=== PATIENT | male | born 1940 | race Caucasian/White ===

== ENCOUNTER 2018-12-03 22:23 | Inpatient (IN) | payer BC, MEDICARE ==
[~2018-12-03] VITALS: Ht 167.6 cm; Wt 77.1 kg
--- NOTE | 2018-12-03 22:35 | NUR ---
ADMITTED DIRECTLY FROM [facility] FOR 5150 HOLD FOR GD, CAME TO THE UNIT AT AROUND 2235, BROUGHT IN BY PARAMEDICS VIA GURNEY. PATIENT CAME DUE TO HIS DELUSIONS AND AGGRESSIVE BEHAVIOR AT HOME. PER HIS AND HOSPITAL STAFF, HE ATTACKED HIS STATING, " I'M SATAN AND I HAVE TO FINISH WHAT I STARTED." PLACED PATIENT IN BED COMFORTABLY, AWAKE ALERT, ORIENTED X1, CONFUSED, DISORIENTED, CALM, QUIET, ABLE FOLLOW INSTRUCTIONS, SLOW SPEECH, , LOW ENERGY, UNKEMPT, DISHEVELED. FLAT AFFECT. RESPIRATION EVEN, BREATHING PATTERN NON-LABORED, NO APPARENT DISTRESS NOTED. DENIES ANY PAIN. SKIN CLEAR, NOTED SCABS, DISCOLORATION ON BLE AND BUE. MRSA SCREEN DONE, SEEN BY DR. KANIKA Hussein. BELONGINGS WERE INVENTORIED AND CHECKED FOR CONTRABAND. PATIENT IS AMBULATORY WITH ASSISTANCE. BED LOCKED AND PLACED ON LOWEST POSITION TO MAINTAIN SAFETY. WILL CONTINUE TO MONITOR Q 15 MINS. FOR SAFETY AND BEHAVIOR.
[2018-12-03] MEDS ORDERED: LOPE2CAP40 PO (22:53)
[2018-12-03] MEDS ORDERED: FLUO20TA28 PO (22:53)
[2018-12-03] MEDS ORDERED: ACETAMINOPHEN 325 MG TABLET PO PRN (23:00)
[2018-12-03] MEDS ORDERED: TEMAZEPAM 7.5 MG CAPSULE PO PRN (23:00)
[2018-12-03] MEDS ORDERED: MAGNESIUM HYDROXIDE 30 ML UDC PO PRN (23:00)
[2018-12-03] MEDS ORDERED: MAG HYDROX/AL HYDROX/SIMETH 30 ML UDC PO PRN (23:00)
--- NOTE | 2018-12-04 04:20 | NUR ---
PATIENT HAD 1 LOOSE BOWEL MOVEMENT, SMALL AMOUNT. HAD SHOWER. UNABLE TO COLLECT URINE, MIXED WITH STOOLS.
[2018-12-04] MEDS ORDERED: clonazePAM 0.5 MG TABLET PO PRN (04:30)
--- NOTE | 2018-12-04 05:55 | NUR ---
SEEN BY DR. SAM. MITCHELL, AWARE OF MED-RECON .
--- NOTE | 2018-12-04 05:56 | NUR ---
CALLED AND ASKED ABOUT HER 'S STATUS, NEWLY ADMITTED TO THE UNIT
[2018-12-04 07:52] LABS: EOSINOPHILS % (AUTO) 0.1 % (0.0-6.0); HEMATOCRIT 43 % (39-51); HEMOGLOBIN 14.7 g/dL (13.5-17.5); LYMPHOCYTES # (AUTO) 0.5 /CMM (0.8-4.8); LYMPHOCYTES % (AUTO) 4.8 % (20.0-44.0); MEAN CORPUSCULAR HGB CONC 34 g/dl (31.0-36.0); MEAN CORPUSCULAR VOLUME 93 fL (80-96); MONOCYTES # (AUTO) 0.9 /CMM (0.1-1.30); MONOCYTES % (AUTO) 7.9 % (2.0-12.0); NEUTROPHILS # (AUTO) 9.5 /CMM (1.8-8.9); NEUTROPHILS % (AUTO) 87.2 % (43.0-81.0); PLATELET COUNT (AUTO) 258 /CMM (150-450); RED BLOOD CELL COUNT(AUTO) 4.63 MIL/uL (4.5-6.0); WHITE BLOOD COUNT (AUTO) 10.9 K/uL (4.3-11.0)
[2018-12-04 08:00] VITALS: BP 153/94
[2018-12-04 08:06] LABS: ALANINE AMINOTRANSFERASE 21 U/L (12-78); ALBUMIN 3.3 g/dL (3.4-5.0); ALKALINE PHOSPHATASE 73 U/L (46-116); ASPARTATE AMINOTRANSFERASE 27 U/L (15-37); CALCIUM, SERUM 9.3 mg/dL (8.5-10.1); CARBON DIOXIDE 28 mmol/L (21-32); CHLORIDE 99 mmol/L (98-107); CREATININE 1.2 mg/dL (0.6-1.3); GLUCOSE 124 mg/dL (74-106); POTASSIUM 4.2 mmol/L (3.5-5.1); SODIUM SERUM 136 mmol/L (136-145); UREA NITROGEN, BLOOD 38 mg/dL (7-18)
[2018-12-04 08:19] LABS: CHOLESTEROL 159 mg/dL (<200); HDL CHOLESTEROL 74 mg/dL (40-60); LDL 87 mg/dL (0-99); TRIGLYCERIDES 64 mg/dL (30-150)
[2018-12-04] MEDS ORDERED: OLANZAPINE 5 MG/TAB.RAPDIS PO SCH (11:25)
--- NOTE | 2018-12-04 14:05 | NUR ---
Initial Discharge Plan: Pt currently resides at his home located at [address] [place] [address] with his , Gina Rose ([phone]). Per pt's , she would like the pt to be admitted into a senior living facility. SANDY presented [facility] as an option due to the family's location. SANDY will work with the pt, the /DPOA, and the MD regarding appropriate discharge planning. SANDY will form a safe and proper discharge.
--- NOTE | 2018-12-04 15:16 | NUR ---
SANDY called the pt's , Kaitlyn Rose ([phone]), and was unable to speak to her because she did not milk pickup truck driver the phone call and the mailbox was full so the SW was not able to leave a message. SANDY realized that the voicemail introduction was for the pt and may not be a number that the has access to. Addendum: 12/05/18 at 0855 by SEAN DELGADO Gina Rose
--- NOTE | 2018-12-04 15:18 | NUR ---
SANDY called [facility] ([phone]) and inquired about whether or not they have a different phone number for the pt's . SANDY was told to fax a request for information to [phone].
--- NOTE | 2018-12-04 15:26 | NUR ---
SW attempted to conduct the psychosocial assessment with the pt but he is currently mute.
--- NOTE | 2018-12-04 15:45 | NUR ---
SANDY received a call from the pt's son, Jose Roes ([phone]), and asked him for the accurate phone number to contact the pt's . The initial treatment and discharge plan was also discussed. The pt's son stated that their family does not feel comfortable with the pt living with his because he had been aggressive. SANDY informed him that she would do her best to get him accepted into a longterm facility located in [place] which is a more local placement for the pt and his family.
[2018-12-04 16:00] VITALS: BP 139/82
--- NOTE | 2018-12-04 16:15 | NUR ---
SW called the pt's , Gina Rose ([phone]), and informed her that the pt is refusing to speak to anyone and that the SW was unable to conduct the psychosocial assessment with him due to that reason. SW conducted the assessment with the pt's and then went on to inform her about the initial treatment and discharge plan. SW informed her that there is a facility in [place] that would be appropriate for the pt and is a local placement to the family. Pt's stated that she is very interested in it and would like the SW to refer the pt there.
[2018-12-04 19:59] VITALS: BP 145/98
--- NOTE | 2018-12-05 03:23 | NUR ---
[facility] RN NOTES PT NOTED TO HAVE CRACKLES. PT DESATING AT 72% BP 112/56 P 157 T 98 RR 25. NOTED TO HAVE ABDOMINAL DISTENTION. RAPID RESPONSE CALLED. PAGED DR. BOUDREAUX. AWAITING FOR ORDERS. WILL CONTINUE TO MONITOR.
--- NOTE | 2018-12-05 03:45 | NUR ---
[facility] RN NOTES DR. BOUDREAUX CALLED. NOTIFIED HIM RE PT'S CONDITION. WITH NEW ORDERS TO TRANSFER TO ICU. ORDERS NOTED AND CARRIED OUT. PT WILL BE TRANSFERRED TO ROOM 252
[2018-12-05 03:51] LABS: ABG BASE EXCESS 1.1 mmol/L; ABG OXYGEN SATURATION 82.5 % (92.0-98.5); ABG PH 7.378 (7.350-7.450); COHb 0.6 % (0.5-1.5); MetHb 0.6 % (0.0-1.5); O2Hb 81.5 % (94.0-97.0); SITE, ABG Right Radial; VENT MODE, BG NRB 100%
[2018-12-05 04:00] VITALS: BP 112/56
--- NOTE | 2018-12-05 04:00 | NUR ---
[facility] RN NOTES REPORT GIVEN TO LAMBERTO STEEPING PRESS TENDER FOR CONTINUITY OF CARE.
--- NOTE | 2018-12-05 04:05 | NUR ---
[facility] RN NOTES CALLED JD. LEFT A MESSAGE RE PT'S TRANSFER TO ICU
[2018-12-05] MEDS ORDERED: FLUOXETINE HCL 20 MG CAPSULE PO SCH (09:00)
--- NOTE | 2018-12-05 09:03 | NUR ---
Pt was discharged from the Geropsychiatric unit and was admitted to the ICU due to an abdominal distension, vomitting and an irregular heart rate. SW will inform the family about this discharge.
--- NOTE | 2018-12-05 09:13 | NUR ---
SW called the pt's , Gina Rose ([phone]), but the dial tone was busy and therefore the SW was unable to inform her that the pt was discharged to ICU due to a medical condition.
--- NOTE | 2018-12-05 09:24 | NUR ---
SANDY called the pt's son, Jose Rose ([phone]), and informed that the pt was discharged to ICU and that if he had any questions the nurses on the unit would be able to assist him better.
== END 2018-12-05 03:46 | disposition short-term general hospital (02) | DRG 885 ==
LOC: GPS 22:23
PROVIDERS: ADMIT Psychiatry & Neurology Psychiatry; ATTEND Psychiatry & Neurology Psychiatry
DX: F33.3 Major depressive disorder, recurrent, severe with psychotic symptoms (principal); R45.851 Suicidal ideations; A04.72 Enterocolitis due to Clostridium difficile, not specified as recurrent; F03.90 Unspecified dementia, unspecified severity, without behavioral disturbance, psychotic disturbance, mood disturbance, and anxiety; Z85.038 Personal history of other malignant neoplasm of large intestine
CPT/HCPCS: 36415; 36600; 71045-TC; 80053-TC; 80061-TC; 85025-TC; 87081-TC

== ENCOUNTER 2018-12-05 04:01 | Inpatient (IN) | payer MEDICARE, BC ==
[2018-12-03 04:00] VITALS: BP 85/53
[2018-12-05] VITALS (111 sets, daily range): BP systolic 56–136; BP diastolic 28–91
[~2018-12-05] VITALS: Ht 175.3 cm; Wt 68.5 kg
--- NOTE | 2018-12-05 03:44 | NUR ---
RECEIVED PT IN RESPIRATORY DISTRESS IN BED. PT IS A/O X 1-2. PT IS ON NON REBREATHER MASK @ 15LPM. PT HAS RIGHT NARE NGT THAT IS CLEAN DRY INTACT AND PATENT WITH BLACK STOMACH CONTENT IN TUBING. TUBEING PLACED TO LOW INTERMITTENT SUCTION TO DECREASE CHANCES OF VOMITING. PT HAS VISIBLE VOMIT ON CLOTHES AND BED. RT AT BEDSIDE AND DEEP SUCTION PERFORMED WITH BLACK STOMACH CONTENT SUCTIONED. PT HAS BILATERAL HAND 20G IV THAT ARE CLEAN DRY INTACT AND PATENT WITH NS @ 100ML/HR. RT PERFORMING ABG. BED IN LOW LOCK POSITION WITH RIALS UP X 2. CALL LIGHT WITHIN REACH AND ALL SAFETY MEASURES ENSURED AND CARRIED OUT. WILL CONTINUE TO MONITOR PT.
--- NOTE | 2018-12-05 03:48 | NUR ---
NOTIFIED DR. KANIKA DUMONT OF ABG RESULTS AND RECEIVED ORDER TO INTUBATE PT.
[~2018-12-05 04:01] MED LIST: FLUO20TA28 PO; LOPE2CAP40 PO
[2018-12-05] MEDS ORDERED: ROCURONIUM BROMIDE 50 MG/5 ML ONE (04:20)
[2018-12-05] MEDS ORDERED: ETOMIDATE 2 MG/ML VIAL ONE (04:20)
--- NOTE | 2018-12-05 04:20 | NUR ---
ER MD DR. BADILLO AT BEDSIDE FOR INTUBATION. 0423- SUCCESSFUL INTUBATION WITH POSITIVE LUNG SOUNDS IN ALL VARGAS AND POSITIVE COLOR CHANGE WITH CO2 DETECTOR. ETT 7.5 AT THE LIP
--- NOTE | 2018-12-05 04:40 | NUR ---
RECEIVED CALL FROM DR. SEBASTIAN TO ADVANCE ETT 7 CM. WILL NOTIFY RT TO ADJUST ETT.
--- NOTE | 2018-12-05 04:45 | NUR ---
RT ADJUSTED ETT TO 27CM. AWAITING XRAY RESULTS.
[2018-12-05] MEDS: PROPOFOL 100 ML IV PRN ×2 (04:55→17:14)
[2018-12-05] MEDS: IV NS 0.9% 1,000 ML IV PRN ×2 (04:56→18:11)
[2018-12-05] MEDS ORDERED: PROPOFOL 100 ML IV PRN (05:00)
--- NOTE | 2018-12-05 05:13 | NUR ---
AT 3:34 PT CALLED FOR RAPID RESPONSE, PT PLACED ON NON REBREATHER, PT STILL DESATTING . ABG DONE . NASO TRACHEAL SUCTIONED DONE . SUCTIONED COFFEE GROUND EMESIS. PT TRANSPORTED TO ICU@ 3:44. PT WAS ORALLY INTUBATED WITH 7.5 ETT@ 23CM AT THE LIP, POSITIVE COLOR CHANGED ON CAP, BILATERAL BREATH SOUNDS AND SYMMETRICAL CHEST RISE. . PLACED PT ON MECH VENT WITH SETTINGS OF AC 16, 500 PEEP 5, FIO2 100%. VENT PLUGGED INTO RED OUTLET, VENT ALARM SET AND AUDIBLE. AMBU BAG @ BEDSIDE . WILL MONITOR CLOSELY.
--- NOTE | 2018-12-05 05:15 | NUR ---
@ 4:45 ETT ADJUST TO 27 CM PER MD'S ORDER. PENDING XRAY REPORT.
[2018-12-05 05:21] LABS: EOSINOPHILS % (AUTO) 0.1 % (0.0-6.0); HEMATOCRIT 53 % (39-51); HEMOGLOBIN 17.5 g/dL (13.5-17.5); LYMPHOCYTES # (AUTO) 0.3 /CMM (0.8-4.8); LYMPHOCYTES % (AUTO) 7.5 % (20.0-44.0); MEAN CORPUSCULAR HGB CONC 33 g/dl (31.0-36.0); MEAN CORPUSCULAR VOLUME 95 fL (80-96); MONOCYTES # (AUTO) 0.3 /CMM (0.1-1.30); NEUTROPHILS # (AUTO) 3.8 /CMM (1.8-8.9); NEUTROPHILS % (AUTO) 86.4 % (43.0-81.0); PLATELET COUNT (AUTO) 251 /CMM (150-450); RED BLOOD CELL COUNT(AUTO) 5.56 MIL/uL (4.5-6.0); WHITE BLOOD COUNT (AUTO) 4.4 K/uL (4.3-11.0)
[2018-12-05 05:38] LABS: ALANINE AMINOTRANSFERASE 87 U/L (12-78); ALBUMIN 3.2 g/dL (3.4-5.0); ALKALINE PHOSPHATASE 85 U/L (46-116); ASPARTATE AMINOTRANSFERASE 79 U/L (15-37); BILIRUBIN,TOTAL 1.3 mg/dL (0.2-1.0); CALCIUM, SERUM 8.8 mg/dL (8.5-10.1); CARBON DIOXIDE 28 mmol/L (21-32); CHLORIDE 99 mmol/L (98-107); CREATININE 2.4 mg/dL (0.6-1.3); GLUCOSE 159 mg/dL (74-106); MAGNESIUM 2.1 mg/dL (1.8-2.4); PHOSPHORUS 5.9 mg/dL (2.5-4.9); POTASSIUM 3.4 mmol/L (3.5-5.1); SODIUM SERUM 141 mmol/L (136-145); UREA NITROGEN, BLOOD 46 mg/dL (7-18)
[2018-12-05 05:57] LABS: ABG OXYGEN SATURATION 98.5 % (92.0-98.5); ABG PCO2 70.5 mmHg (35.0-45.0); ABG PH 7.246 (7.350-7.450); ABG PO2 173.3 mmHg (75.0-100.0); AaDO2 469.2 mmHg; COHb 0.1 % (0.5-1.5); O2Hb 97.4 % (94.0-97.0); PEEP,BG 5 cm H2O; SITE, ABG Left Radial; VT, ABG 500 mL
--- NOTE | 2018-12-05 06:30 | NUR ---
VENT SETTING CHANGED TO RATE OF 20 PER MD'S ORDER. PO ORANTES NOTIFIED
--- NOTE | 2018-12-05 07:15 | NUR ---
VASCULAR SONOGRAPHER: pt.is sedated with 30mcg/kg/m Diprivan, reactive by touch, can open eyes, restless, on wrists restraints, ST 140-150, SBP 79-86, O2sat. 95-97%, NGT to LIS, L.hand PIVL blood return+, R.hand PIVL needs to be retape, paged Mir, PATIENT ATTENDANT
[2018-12-05] MEDS ORDERED: IV NS 0.9% 1,000 ML IV ONE ×2 (07:37→09:10)
[2018-12-05] MEDS ORDERED: IV NS 0.9% 1,000 ML IV PRN (07:38)
[2018-12-05 07:48] LABS: ABG BASE EXCESS 2.7 mmol/L; ABG PCO2 44.7 mmHg (35.0-45.0); ABG PH 7.414 (7.350-7.450); ABG PO2 197.9 mmHg (75.0-100.0); AaDO2 470.4 mmHg; COHb 0.4 % (0.5-1.5); MetHb 0.8 % (0.0-1.5); O2Hb 97.8 % (94.0-97.0); PEEP,BG 5 cm H2O; SITE, ABG Right Radial; VT, ABG 500 mL
--- NOTE | 2018-12-05 07:51 | NUR ---
PT REMAINS IN NO ACUTE DISTRESS IN BED. PT DID NOT HAVE ANY SIGNIFICANT CHANGE IN CONDITION DURING SHIFT. PT TOLERATING VENT SETTING WELL. ALL NEEDS MET, ALL ORDERS CARRIED OUT. WILL ENDORSE CARE TO AM RN FOR CONTINUITY OF CARE.
--- NOTE | 2018-12-05 07:58 | NUR ---
RT PT RECEIVED ORALLY INTUBATED WITH A 7.5 ETT SECURED AT 27CM AT THE LIP LINE, PT IS ON THE VENT WITH NOTED SETTINGS. PEEP DECREASED DUE TO HYPOTENSION. PT IS CURRENTLY SEDATED AT THIS TIME AND RESPONDS TO STIMULI WHEN SX'D. VENT ALARMS ARE SET AND AUDIBLE WITH BVM BY BEDSIDE. SYSTEMS DEVELOPER CUFF PRESSURE NOTED. VENT IS PLUGGED INTO RED OUTLET. SX'D SMALL THIN REINOSO SECRETIONS. NO RESPIRATORY DISTRESS NOTED AT THIS TIME, WILL CONTINUE TO MONITOR. Addendum: 12/05/18 at 1446 by ARMEN BOO RT Amended: Links added.
--- NOTE | 2018-12-05 08:00 | NUR ---
ACCOUNT SERVICES SPECIALIST: updated by night nurse, ordered ABG, pH 7.41 now, SHARRI Hester called back, ordered: NS1L bolus, Willy gtt, R.IVPL blood return+, charge nurse updated/called concrete pipe plant supervisor for midline/picc placement
--- NOTE | 2018-12-05 08:05 | NUR ---
WOOD GRINDER: double IVF order is in comp., confirmed: continue NS 100ml/h
--- NOTE | 2018-12-05 08:10 | NUR ---
FEED MIXER HELPER: Diprivan gtt down to 10mcg/kg/m d/t low BP, 1L NS bolus running, pt.family called, notified re what happened last night/current status, POC, Mir is in room, updated with all above, ordered stool for c-diff, 200ml brown by NGT LIS
[2018-12-05] MEDS: PHENYLEPHRINE 80 MG in IV NS 0.9% 250 ML IV PRN ×3 (08:21→17:41)
[2018-12-05 08:42] LABS: THYROID STIMULATING HORMONE 0.54 uIU/mL (0.358-3.74)
--- NOTE | 2018-12-05 08:45 | NUR ---
INSIDE SALES PROFESSIONAL: is in room, updated with pt.current condition, sedation level, pressor, VS, suction amount, IVF, orders, ABG, I/O, ordered: second L NS bolus, rate 500ml/h. Willy-synephrine gtt on/titrate+
[2018-12-05] MEDS: HYDROCORTISONE SOD SUCCINATE 100 MG/2 ML VIAL IV SCH ×3 (09:16→17:01)
[2018-12-05] MEDS ORDERED: PIPERACILLIN /TAZOBACTAM 3.375 G in IV D5W 50 ML IV ONE (10:00)
--- NOTE | 2018-12-05 10:11 | NUR ---
DR. CAMARENA GAVE AN ORDER TO D/C HOLD.
[2018-12-05] MEDS ORDERED: POTASSIUM CL. PREMIX PERIPHER. 50 ML IV SCH (11:12)
--- NOTE | 2018-12-05 11:30 | NUR ---
MUTUEL MACHINE OPERATOR: pt.family is in room, detailed updated with pt.current status, VS, order, POC, agree for PICC placement, PO Hernadez placed in L.arm PICC/OK to use
[2018-12-05] MEDS ORDERED: PIPERACILLIN /TAZOBACTAM 2.25 G in IV D5W 50 ML IV SCH (12:00)
[2018-12-05] MEDS: FLUDROCORTISONE 0.1 MG TABLET PO SCH ×3 (12:11→23:29)
[2018-12-05] MEDS ORDERED: IV NS 0.9% 500 ML IV ONE ×2 (12:26→13:00)
--- NOTE | 2018-12-05 12:30 | NUR ---
NURSE MANAGER: max of Willy-synephrine gtt 300mcg/m dose now, SBP 85-90 now, HR 115-120, O2sat. 95-97%, FiO2 60%, notified, ordered 500ml NS bolus
[2018-12-05] MEDS ORDERED: NOREPINEPHRINE 16 MG in IV D5W 500 ML IV PRN (13:00)
--- NOTE | 2018-12-05 13:00 | NUR ---
DENTAL TECHNICIAN INSTRUCTOR: is in room again, updated/SBP still 80-90, ordered one more 500ml NS bolus and Levophed prn after, spoke with pt.family with details
[2018-12-05] MEDS: PIPERACILLIN /TAZOBACTAM 3.375 G in IV D5W 100 ML IV SCH (17:02)
--- NOTE | 2018-12-05 17:24 | NUR ---
Patient was transferred from [facility] to ICU due to changed of condition. He is currently on a 5250 HOLD for grave disability and danger to self.Prior coming to the hospital, he resides with his in [facility]. Gina Rose - [phone]/ Jose Rose -son [phone] are involved and supportive with plan of care. Current dc plan is to return to [facility] once medically cleared vs SNF [facility] Addendum: 12/05/18 at 1725 by CHRISTEN PLEITEZ RN Amended: Links added.
[2018-12-05 18:11] LABS: OCCULT BLOOD STOOL POSITIVE (NEGATIVE)
[2018-12-05] MEDS ORDERED: Z GUARD REMEDY 2 OZ OINT TP PRN (18:30)
--- NOTE | 2018-12-05 18:30 | NUR ---
BLOCK AND CASE MAKER: 4 mcg/m Levo gtt now, 280 mcg/m Willy gtt, continue titrate, SBP over 90, O2sat. over 95%, St 100-120, PM, skin care done
--- NOTE | 2018-12-05 20:00 | NUR ---
SCRIPT SUPERVISOR - NOTES - PT RECEIVED IN BED IN NO ACUTE DISTRESS IN BED. PT ON VENT TOLERATING SETTING WELL 02SAT 100%. VITAL SIGNS STABLE. PT IS SEDATED ON PROPOFOL @ 20 MCG, ON LEVOPHED AND NEOSYNEPHRINE, AND IVF 100 ML/HR. PT HAS R NARE NGT TO LIS. PT IS ON RESTRAINTS FOR SAFETY. PT IS IN ST/SR. TMAX 100.7. PT HAS F/C WITH CLEAR YELLOW URINE ADEQUATE AMOUNT. PT HAS MIROSLAVA PICC LINE AND RIGHT HAND 20G AND LEFT AND 20G. WILL CONTINUE TO MONITOR.
--- NOTE | 2018-12-05 20:10 | NUR ---
RT NOTE PATIENT RECEIVED ON AC 20, 500, 60%, NO PEEP. ET TUBE 7.5 @ 27 LIP LINE. AMBU BAG @ HOB. VENT PLUGGED INTO RED OUTLET. PATIENT IS ORALLY INTUBATED AND RESPONDS TO STIMULI WHEN SX'D. SMALL THIN REINOSO SECRETIONS NOTED. ALARMS ON AND AUDIBLE. NO DISTRESS NOTED, WILL MONITOR CLOSELY T/O SHIFT. Addendum: 12/05/18 at 2013 by ANALI RIDDLE RT Amended: Links added.
[2018-12-06] VITALS (118 sets, daily range): BP systolic 53–120; BP diastolic 47–77
[2018-12-06] MEDS: PIPERACILLIN /TAZOBACTAM 3.375 G in IV D5W 100 ML IV SCH ×3 (02:49→17:57)
[2018-12-06] MEDS: PROPOFOL 100 ML IV PRN ×3 (02:49→19:24)
[2018-12-06] MEDS: PHENYLEPHRINE 80 MG in IV NS 0.9% 250 ML IV PRN ×2 (03:10→21:23)
[2018-12-06] MEDS: IV NS 0.9% 1,000 ML IV PRN (04:29)
[2018-12-06 05:01] LABS: ALANINE AMINOTRANSFERASE 123 U/L (12-78); ALKALINE PHOSPHATASE 47 U/L (46-116); ASPARTATE AMINOTRANSFERASE 67 U/L (15-37); BILIRUBIN,TOTAL 0.8 mg/dL (0.2-1.0); CALCIUM, SERUM 7.8 mg/dL (8.5-10.1); CARBON DIOXIDE 28 mmol/L (21-32); CHLORIDE 107 mmol/L (98-107); CREATININE 1.8 mg/dL (0.6-1.3); GLUCOSE 129 mg/dL (74-106); POTASSIUM 3.9 mmol/L (3.5-5.1); SODIUM SERUM 144 mmol/L (136-145); TOTAL PROTEIN, SERUM 5.1 g/dL (6.4-8.2); UREA NITROGEN, BLOOD 50 mg/dL (7-18)
[2018-12-06 05:21] LABS: HEMATOCRIT 39 % (39-51); HEMOGLOBIN 12.9 g/dL (13.5-17.5); LYMPHOCYTES # (AUTO) 0.4 /CMM (0.8-4.8); LYMPHOCYTES % (AUTO) 3.4 % (20.0-44.0); MEAN CORPUSCULAR HGB CONC 34 g/dl (31.0-36.0); MEAN CORPUSCULAR VOLUME 95 fL (80-96); MONOCYTES # (AUTO) 0.5 /CMM (0.1-1.30); MONOCYTES % (AUTO) 4.8 % (2.0-12.0); NEUTROPHILS % (AUTO) 91.8 % (43.0-81.0); PLATELET COUNT (AUTO) 165 /CMM (150-450); RED BLOOD CELL COUNT(AUTO) 4.06 MIL/uL (4.5-6.0); WHITE BLOOD COUNT (AUTO) 10.8 K/uL (4.3-11.0)
[2018-12-06] MEDS: FLUDROCORTISONE 0.1 MG TABLET PO SCH (05:44)
--- NOTE | 2018-12-06 07:40 | NUR ---
LARD MAKER: pt.is sedated well with Diprivan 20 mcg/kg/m, reactive by touch, rest, no grimacing, on wrists restraints, SR, on 40 mcg/m Willy-Syn gtt now, SBP over 90, continue titrate, Levophed gtt is off, NGT LIS 200ml suction over night, stool OB +/will s/w , FiO2 60%, O2sat. 98-100%
--- NOTE | 2018-12-06 08:25 | NUR ---
MACHINE HOSE CUTTER: Mir, LICENSING COORDINATOR is in room, updated with pt.current condition, sedation level, jaycob gtt, VS, I/O, NGT LIS, NPO, IVF, labs, diarrhea, stool OB+, meds, ordered: flexiseal tube placement, see new orders
--- NOTE | 2018-12-06 08:40 | NUR ---
SHEEP OR CALF GRADER: SHARRI Hester confirmed: apply legs DVT pump
--- NOTE | 2018-12-06 09:20 | NUR ---
HOUSEKEEPER CLEANING COOKING: rectal tube is placed in/no leak, skin care done, continue titrate pressor, RT changed FiO2 to 40%
[2018-12-06] MEDS: PANTOPRAZOLE 40 MG VIAL IV SCH ×2 (09:33→17:15)
--- NOTE | 2018-12-06 10:00 | NUR ---
COMMUNITY RELATIONS REP: is in room, updated with pt.current condition, VS, T, sedation level, Willy gtt 10 mcg/m now, I/O, suction amount, vent.setting, stool OB+, diarrhea, plan: ABG and sedation vacation after
[2018-12-06 10:02] LABS: BAND % (MANUAL) 50 % (0.0-5.0); LYMPHOCYTES % (MANUAL) 5 % (16-48); MONOCYTES % (MANUAL) 12 % (0-11.0); MYELOCYTES % 1 % (0-0); NEUTROPHILS % (MANUAL) 32 (42-76)
[2018-12-06 10:32] LABS: ABG PCO2 38.2 mmHg (35.0-45.0); ABG PO2 69.5 mmHg (75.0-100.0); AaDO2 171.8 mmHg; COHb 0.1 % (0.5-1.5); MetHb 0.9 % (0.0-1.5); O2Hb 92.1 % (94.0-97.0); PEEP,BG 0 cm H2O; SITE, ABG Right Radial; VT, ABG 500 mL
--- NOTE | 2018-12-06 11:10 | NUR ---
DIRECTOR OF RECRUITING: pt.was without sedation around 20 mins, was rest, able to open eyes for seconds, RR 20-24, O2sat. over 97%, but HR is up to 140-160, Afib on monitor, palpation: 100-105, SBP over 90, pt is grimacing, resumed sedation, updated with ABG and all above
--- NOTE | 2018-12-06 11:50 | NUR ---
PANTS MAKER: family is in room, got detailed report re pt.current condition, VS, orders, POC. Aifb on monitor, 140-160, sedation Diprivan 25 mcg/kg/m now, Willy-synephrine gtt 100 mcg/m now, will get EKG, notified, ordered: bolus NS 500ml and titrate off Willy gtt to keep SBP over 95
[2018-12-06] MEDS ORDERED: IV NS 0.9% 500 ML IV ONE (12:30)
--- NOTE | 2018-12-06 12:40 | NUR ---
SKIVER OPERATOR: NS 500ml bolus given, went down with Willy gtt to 50 mcg/m, but back to 100 mcg/m d/t SBP 83-89, Afib converted to SR/ST, now 98-108, notified
--- NOTE | 2018-12-06 13:30 | NUR ---
STRIP CUTTING MACHINE OPERATOR: pt.is sedated well, ST 100-110, SBP over 90, continue titrate Willy gtt, pt.family updated with POC again
--- NOTE | 2018-12-06 15:40 | NUR ---
COMPRESSOR STATIONS SUPERINTENDENT: suctioned pt.well after coughing, grimacing, increased Diprivan sedation to 30 mcg/kg/m, got HR 140-160, afib, sent message for
--- NOTE | 2018-12-06 15:49 | NUR ---
WINDOW DRESSER: BP 88/59, increased Willy gtt at 40 mcg/m, Afib converted to SR-ST 98-110 spontaneously, charge nurse updated
--- NOTE | 2018-12-06 16:45 | NUR ---
CLINICAL BIOCHEMICAL GENETICIST: still on Willy gtt, continue titrate, 40 mcg/m now, sedated well, rhythm: Afib - SR/ST rapid in and out still, message was sent to by charge nurse and me, all PM/skin care done
--- NOTE | 2018-12-06 17:20 | NUR ---
PLANT MAINTENANCE TECHNICIAN: MirUTILITY CLERK is in unit and updated with pt.current status, still on Willy gtt, Afib -SR/ST rapid in and out rhythm, message for was sent, ordered: BMP, Mg stat
[2018-12-06 17:34] LABS: IRON, SERUM 8 ug/dl (50-175); TOTAL IRON BINDING CAPACITY 202 ug/dl (250-450)
[2018-12-06 17:47] LABS: FERRITIN 168 ng/mL (8-388)
[2018-12-06] MEDS: SUCRALFATE 1 G/10 ML UDC PO SCH ×2 (17:56→21:18)
--- NOTE | 2018-12-06 18:12 | NUR ---
RT END OF THE SHIFT REPORT; PT REC. 0700 AM SHIFT. FAMILY MEMBERS AT THE BEDSIDE. PT. 78 Y OLD MALE ORALLY INTUBATED ETT# 7.5@ 27 CM SECURED AT THE LIP. REMAIN STABLE. NOT SEDATED PT. TOLERATING VENT SETTINGS. SUX'D FOR SMALL AMT OF WHITE SECRETIONS. EQUAL CHEST RISE NOTED. CUFF CHHA. VENT ALARMS SET AND AUDIBLE. AMBU BAG AT BEDSIDE. VENT PLUGGED INTO RED OUTLET. WILL CONTINUE TO MONITOR. HME CHANGED. REPORT WILL PASS TO PM SHIFT. Addendum: 12/06/18 at 1814 by CARA BERRY RT Amended: Links added.
[2018-12-06 18:21] LABS: CALCIUM, SERUM 7.7 mg/dL (8.5-10.1); CARBON DIOXIDE 30 mmol/L (21-32); CHLORIDE 109 mmol/L (98-107); CREATININE 1.4 mg/dL (0.6-1.3); GLUCOSE 101 mg/dL (74-106); POTASSIUM 3.5 mmol/L (3.5-5.1); SODIUM SERUM 145 mmol/L (136-145); UREA NITROGEN, BLOOD 41 mg/dL (7-18)
--- NOTE | 2018-12-06 18:34 | NUR ---
COAL HANDLER: SR/ST 99-105 is now, Willy gtt 30 mcg/m, SBP over 95, continue titrate, Elyssa, DIPLOMATIC INTERPRETER/TRANSLATOR is in room/updated
--- NOTE | 2018-12-06 19:30 | NUR ---
DE ICER INSTALLER: RECEIVED ORALLY INTUBATED PT WT MECH VENT SETTINGS ORDERED. SEDATED ON DIPRIVAN DRIP AT 30MCG/KG/MIN. WITHDRAWS TO LOCALIZED PAIN. NO ACUTE DISTRESS, NO EVIDENCE OF DISCOMFORT. SR ON SENIOR EXECUTIVE COMPENSATION ANALYST. MIROSLAVA PICC LINE ALSO INFUSING PHENYLEPHRINE AT 30MCG/MIN WT NO S/S OF PICC LINE COMPLICATIONS. RT. NGT TO LIS WT GREENISH SECRETIONS FROM PREVIOUS SHIFT. RECTAL TUBE IN PLACE WT DARK BROWN LIQUID STOOLS. F/C PATENT AND INTACT DRAINING YELLOW URINE TO GRAVITY. BILAT. SOFT WRIST RESTRAINTS IN PLACE TO PREVENT SELF EXTUBATION. SKIN AND CIRCULATION WNL. HOB AT 35 DEGREES. SAFETY PRECAUTION NOTED. WILL CONTINUE TO MONITOR.
--- NOTE | 2018-12-06 21:55 | NUR ---
AIRPORT ENGINEER: DR. BOUDREAUX IN ICU UNIT AND MADE AWARE OF PT IN AND OUT OF A. FIB WT HR IN 130s-140s. MD SAID TO CONTINUE TO MONITOR AND WAIT FOR CARDIO. CONSULT WT DR. LOPEZ. NO ACUTE DISTRESS NOTED ON PT.
[2018-12-07] VITALS (62 sets, daily range): BP systolic 100–139; BP diastolic 60–84
[2018-12-07] MEDS: PIPERACILLIN /TAZOBACTAM 3.375 G in IV D5W 100 ML IV SCH ×3 (01:39→17:44)
--- NOTE | 2018-12-07 02:00 | NUR ---
PERSONNEL RECORDS CLERK: NEOSYNEPHRINE HELD AT THIS TIME DUE TO STABLE BP. WILL CONTINUE TO MONITOR.
[2018-12-07] MEDS: PROPOFOL 100 ML IV PRN ×2 (02:24→09:02)
--- NOTE | 2018-12-07 04:00 | NUR ---
FEED HANDLER: FIO2 INCREASED TO 50% WHILE GIVEN BED BATH AND DESATURATED AT 90% 02 SAT. WILL CONTINUE TO MONITOR.
[2018-12-07 05:19] LABS: BASOPHILS % (AUTO) 0.1 % (0.0-2.0); EOSINOPHILS % (AUTO) 0.5 % (0.0-6.0); HEMATOCRIT 37 % (39-51); HEMOGLOBIN 12.4 g/dL (13.5-17.5); LYMPHOCYTES # (AUTO) 0.4 /CMM (0.8-4.8); MEAN CORPUSCULAR HGB CONC 33 g/dl (31.0-36.0); MEAN CORPUSCULAR VOLUME 94 fL (80-96); MONOCYTES # (AUTO) 0.2 /CMM (0.1-1.30); MONOCYTES % (AUTO) 1.7 % (2.0-12.0); NEUTROPHILS # (AUTO) 11.8 /CMM (1.8-8.9); NEUTROPHILS % (AUTO) 94.7 % (43.0-81.0); PLATELET COUNT (AUTO) 138 /CMM (150-450); RED BLOOD CELL COUNT(AUTO) 3.96 MIL/uL (4.5-6.0); WHITE BLOOD COUNT (AUTO) 12.5 K/uL (4.3-11.0)
[2018-12-07 05:22] LABS: ALANINE AMINOTRANSFERASE 82 U/L (12-78); ALKALINE PHOSPHATASE 63 U/L (46-116); ASPARTATE AMINOTRANSFERASE 42 U/L (15-37); BILIRUBIN,TOTAL 0.6 mg/dL (0.2-1.0); CARBON DIOXIDE 30 mmol/L (21-32); CHLORIDE 109 mmol/L (98-107); CREATININE 1.2 mg/dL (0.6-1.3); GLUCOSE 111 mg/dL (74-106); MAGNESIUM 2.4 mg/dL (1.8-2.4); PHOSPHORUS 2.2 mg/dL (2.5-4.9); POTASSIUM 3.4 mmol/L (3.5-5.1); SODIUM SERUM 145 mmol/L (136-145); TOTAL PROTEIN, SERUM 5.6 g/dL (6.4-8.2); UREA NITROGEN, BLOOD 38 mg/dL (7-18)
--- NOTE | 2018-12-07 06:10 | NUR ---
ACID LOADER: STILL OFF NEOSYNEPHRINE, FI02 BACK TO 40% AND REMAIN SEDATED ON DIPRIVAN AT 30MCG/KG/MIN. NO MORE EPISODE OF UNCONTROLLED A. FIB AT THIS TIME (SINUS RHYTHM WT HR IN THE 80s). WILL ENDORSE TO DAY SHIFT FOR CONTINUITY OF CARE.
--- NOTE | 2018-12-07 08:00 | NUR ---
CERTIFIED HOME HEALTH AIDE RECEIVED PT SEDATED WITH DIPRIVAN. PT REMAINS ON VENTILATOR WITH SPO2 CONSISTENTLY HIGH 90'S. NO EPISODE OF TACHYCARDIA SEE LAST NIGHT.
[2018-12-07] MEDS: PANTOPRAZOLE 40 MG VIAL IV SCH ×2 (09:02→16:36)
[2018-12-07] MEDS: SUCRALFATE 1 G/10 ML UDC PO SCH ×4 (09:03→21:21)
--- NOTE | 2018-12-07 10:00 | NUR ---
RELIEF MATE HERE, UPDATED. PT REMAINS COMFORTABLE ON VENT WITH DIPRIVAN DRIP. BP STABLE. NO EPISODES OF DYSRHYTHMIAS SEEN. CONTINUES TO HAVE LIQUID STOOL COLLECTED BY FLEXISEAL. SUCTIONED, REPOSITIONED.
[2018-12-07] MEDS ORDERED: POTASSIUM CHLORIDE 20 MEQ POWDER PACKET GT ONE (11:00)
--- NOTE | 2018-12-07 12:00 | NUR ---
SOLID WASTE ENGINEER RECEIVED CALL FROM [facility] REGARDING LAB RESULTS. PT HAS POSITIVE C. DIFF. PLACED ON CONTACT ISOLATION.
[2018-12-07] MEDS: POTASSIUM CL. PREMIX PERIPHER. 50 ML IV SCH ×2 (13:38→13:40)
[2018-12-07] MEDS: METRONIDAZOLE 500MG/ NS 100ML 500 MG in PREMIX 1 EA IV SCH ×2 (13:40→21:19)
[2018-12-07] MEDS: VANCOMYCIN HCL 125 MG/2.5 ML ORAL.SUSP PO SCH ×3 (13:40→23:32)
[2018-12-07] MEDS: HEPARIN SODIUM, PORCINE 5000 UNITS/1 ML VIAL SQ SCH ×2 (13:44→21:00)
[2018-12-07] MEDS: IV D5/ 0.9% NACL 1,000 ML IV PRN (14:03)
--- NOTE | 2018-12-07 16:00 | NUR ---
TRANSMISSION DESIGN ENGINEER KARI LOPEZ SPOKE WITH PT'S REGARDING EGD. PT'S WILL SIGN CONSENT TOMORROW BEFORE PROCEDURE.
[2018-12-07] MEDS ORDERED: NEUTRA PHOS 1 POWD.PACKET GT ONE (16:30)
[2018-12-07] MEDS: SOD FERRIC GLUC 125 MG in IV NS 0.9% 100 ML IV SCH (16:59)
[2018-12-07] MEDS ORDERED: PROPOFOL 100 ML IV PRN (18:00)
--- NOTE | 2018-12-07 18:00 | NUR ---
SHIPBOARD INTELLIGENCE ANALYST PT BECOMING AGITATED, MOVING ALL EXTREMITIES WHILE OFF DIPRIVAN. ORDER RECEIVED TO RESTART DIPRIVAN.
--- NOTE | 2018-12-07 19:40 | NUR ---
RN NOTES RECEIVED PT SEDATED WITH DIPRIVAN RESPONSIVE TO TACTILE STIMULI ORALLY INTUBATED WITH ETT 7.5 AND 27 CM AT LIP CONNECTED TO VENT SETTING AC 20 TV 500 FIO2 40% NO PEEP. NSR ONT OBEY MONITOR HR 90'S . NO ACUTE RESPIRATORY DISTRESS SATURATION >92%. AFEBRILE. WITH NGT CLAMPED AT THIS TIME. IV SITE ON ALLEN PICC LINE RUNNING WITH D5 1/2 NS @ 80 ML/HR AND DIPRIVAN @ 10 MCG/KG/MIN TOLERATED WELL. PRESENT WITH FLEXISEAL DRY LIQUID STOOL AND CONTACT ISOLATION FOR C- DIFF. KEPT PT CLEAN AND COMFORTABLE ON BED. KEPT PT CLEAN AND DRY WILL CONTINUE TO MONITOR. Addendum: 12/07/18 at 2318 by PJ CHACKO RN IV SITE ON MIROSLAVA NOT ON ALLEN
--- NOTE | 2018-12-07 20:23 | NUR ---
RECEIVED PT INTUBATED 7.5 ETT SECURED AT 27CM AT THE LIP. NO RESP DISTRESS, TOLERATING VENT SETTINGS. SX'D FOR SML AMT OF THIN WHITE SECRETIONS. VENT ALARMS SET AND AUDIBLE. AMBU BAG AT BEDSIDE. VENT PLUGGED INTO RED OUTLET. WILL CONTINUE TO MONITOR. Addendum: 12/07/18 at 2024 by TARIQ BUTCHER RT Amended: Links added.
[2018-12-08] VITALS (64 sets, daily range): BP systolic 96–163; BP diastolic 56–117
[2018-12-08] MEDS: PIPERACILLIN /TAZOBACTAM 3.375 G in IV D5W 100 ML IV SCH ×3 (02:09→17:10)
[2018-12-08 04:35] LABS: EOSINOPHILS % (AUTO) 0.4 % (0.0-6.0); HEMATOCRIT 35 % (39-51); HEMOGLOBIN 11.6 g/dL (13.5-17.5); LYMPHOCYTES # (AUTO) 0.4 /CMM (0.8-4.8); LYMPHOCYTES % (AUTO) 2.6 % (20.0-44.0); MEAN CORPUSCULAR HGB CONC 33 g/dl (31.0-36.0); MEAN CORPUSCULAR VOLUME 94 fL (80-96); MONOCYTES # (AUTO) 0.6 /CMM (0.1-1.30); MONOCYTES % (AUTO) 3.5 % (2.0-12.0); NEUTROPHILS # (AUTO) 14.8 /CMM (1.8-8.9); NEUTROPHILS % (AUTO) 93.5 % (43.0-81.0); PLATELET COUNT (AUTO) 138 /CMM (150-450); WHITE BLOOD COUNT (AUTO) 15.9 K/uL (4.3-11.0)
[2018-12-08 04:42] LABS: CALCIUM, SERUM 8.1 mg/dL (8.5-10.1); CARBON DIOXIDE 29 mmol/L (21-32); CHLORIDE 108 mmol/L (98-107); CREATININE 1.1 mg/dL (0.6-1.3); GLUCOSE 130 mg/dL (74-106); POTASSIUM 2.9 mmol/L (3.5-5.1); SODIUM SERUM 137 mmol/L (136-145); UREA NITROGEN, BLOOD 34 mg/dL (7-18)
[2018-12-08] MEDS: METRONIDAZOLE 500MG/ NS 100ML 500 MG in PREMIX 1 EA IV SCH ×3 (04:57→17:09)
[2018-12-08] MEDS: IV D5/ 0.9% NACL 1,000 ML IV PRN ×2 (04:59→21:11)
[2018-12-08] MEDS: VANCOMYCIN HCL 125 MG/2.5 ML ORAL.SUSP PO SCH ×4 (05:01→23:08)
--- NOTE | 2018-12-08 07:32 | NUR ---
RN NOTES NO SIGNIFICANT CHANGE OF CONDITION THROUGHOUT THE SHIFT. PATIENT REMAINED ORALLY INTUBATED WITH THE SAME SETTING. NO ACUTE RESPIRATORY DISTRESS. CALM AND COOPERATIVE DIPRIVAN @ 5 MCG/KG.MIN ONGOING TITRATED ORDERED. IV SITE INTACT AND PATENT INF ONGOING. F/C INTACT AND PATENT FLEXISEAL DRAINED WITH BLACK COLOR LIQUID STOOL. ENDORSED CONTINUITY TO AM NURSE. AND TO ASKED TO SIGNED CONSENT FOR EGD.
--- NOTE | 2018-12-08 09:13 | NUR ---
WOUND CARE CONSULT: PT PRESENTS WITH LIQUID STOOLS, BLANCHABLE REDNESS TO SACRUM AND LEFT EAR LESION, PRESENT ON ADMISSION. 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 RECOMMENDATIONS MADE FOR SKIN PROTECTION AND CARE. DISCUSSED WITH NURSING STAFF. PT ON FIRST STEP CIRRUS LOW AIRLOSS MATTRESS. GONCALVES AND RECTAL TUBE NOTED. Z GUARD IN USE. WILL SEE PRN. CURRENT DRAKE SCORE IS 12. MD IN AGREEMENT WITH PLAN OF CARE. Addendum: 12/08/18 at 0915 by MELVA SHUKLA WNDNU Amended: Links added.
[2018-12-08] MEDS: POTASSIUM CL. PREMIX PERIPHER. 50 ML IV SCH ×4 (09:25→23:53)
[2018-12-08] MEDS: HEPARIN SODIUM, PORCINE 5000 UNITS/1 ML VIAL SQ SCH ×2 (09:28→22:59)
[2018-12-08] MEDS: PANTOPRAZOLE 40 MG VIAL IV SCH ×2 (09:29→17:13)
[2018-12-08] MEDS ORDERED: POTASSIUM CL. PREMIX PERIPHER. 50 ML IV SCH (10:14)
[2018-12-08 10:30] LABS: ABG BASE EXCESS 4.4 mmol/L; ABG OXYGEN SATURATION 95.4 % (92.0-98.5); ABG PCO2 39.1 mmHg (35.0-45.0); ABG PH 7.476 (7.350-7.450); ABG PO2 78.5 mmHg (75.0-100.0); AaDO2 161.7 mmHg; COHb 0.3 % (0.5-1.5); MetHb 0.5 % (0.0-1.5); O2Hb 94.6 % (94.0-97.0); PEEP,BG 5 cm H2O; SITE, ABG Right Radial
[2018-12-08] MEDS: SUCRALFATE 1 G/10 ML UDC PO SCH ×3 (12:00→21:22)
[2018-12-08] MEDS: SOD FERRIC GLUC 125 MG in IV NS 0.9% 100 ML IV SCH (17:09)
--- NOTE | 2018-12-08 18:03 | NUR ---
RT END OF THE SHIFT REPORT; PT REC. 0700 AM SHIFT. FAMILY MEMBERS AT THE BEDSIDE. PT. 78 Y OLD MALE ORALLY INTUBATED ETT# 7.5@ 27 CM SECURED AT THE LIP. REMAIN STABLE. NOT SEDATED PT. TOLERATING SIMV VENT SETTINGS. POST ABG PER DR. HILLS LEAVE PT. ON SIMV MODE AND IF EEG IN PROCESS PLACE ON AC MODE T/O DAY NO EEG AND PT. REMAIN ON SIMV MODE. SUX'D FOR MODERATE AMT OF WHITE SECRETIONS. EQUAL CHEST RISE NOTED. CUFF AIR ANTISUBMARINE OFFICER. VENT ALARMS SET AND AUDIBLE. AMBU BAG AT BEDSIDE. VENT PLUGGED INTO RED OUTLET. WILL CONTINUE TO MONITOR. HME CHANGED. REPORT WILL PASS TO PM SHIFT. Addendum: 12/08/18 at 1804 by CARA BERRY RT Amended: Links added.
--- NOTE | 2018-12-08 20:30 | NUR ---
RN NOTES RECEIVED PT ASLEEP ON BED. RESPONSIVE TO TACTILE STIMULI. ORALLY INTUBATED, CALM AND COOPERATIVE. NO SEDATION. VENT SETTING TOLERATED WELL. VENT SETTING ON SIMV MODE. NO ACUTE RESPIRATORY DISTRESS. TEMP 99.7 WITH NGT CLAMPED PATENCY CHECKED. IV SITE ON ALLEN PICC LINE WITH D5 NS @ 80 ML.HR OFF FROM SEDATION. BILATERAL WRIST RESTRAINT KEPT ON FOR SAFETY NOT TO PULL THE TUBE. F/C DRAINED WITH FERNANDA COLOR URINE, FLEXISEAL WITH DARK GREEN LIQUID STOOL KEPT OUT FROM THE FLOOR. KEPT PT CLEAN AND DRY, OFFLOADED EXT WITH PILLOWS. TURNED AND REPOSITION FOR COMFORTABLE.
--- NOTE | 2018-12-08 22:04 | NUR ---
RECEIVED PT INTUBATED ON SIMV MODE. PT TOLERATING VENT SETTINGS. SX'D FOR MOD AMT OF THIN WHITE SECRETIONS. VENT ALARMS SET AND AUDIBLE. AMBU BAG AT BEDSIDE. VENT PLUGGED INTO RED OUTLET. WILL CONTINUE TO MONITOR. Addendum: 12/08/18 at 2206 by TARIQ BUTCHER RT Amended: Links added.
--- NOTE | 2018-12-08 22:30 | NUR ---
RN NOTES NOTED THAT THE PATIENT 3 BAGS OF POTASSIUM WAS NOT GIVEN IN PREVIOUS SHIFT. CALLED AND INFORMED DR. MITCHELL PER MD TO GIVE THE REMAINING BAGS TO PATIENT AND CHECK THE BMP IN AM, NOTED AND CARRIED OUT ORDERS
[2018-12-08] MEDS ORDERED: POTASSIUM CL. PREMIX PERIPHER. 150 ML ONE (23:24)
[2018-12-09] VITALS (49 sets, daily range): BP systolic 118–149; BP diastolic 61–89
[2018-12-09] MEDS: POTASSIUM CL. PREMIX PERIPHER. 50 ML IV SCH ×2 (01:09→02:08)
[2018-12-09] MEDS: PIPERACILLIN /TAZOBACTAM 3.375 G in IV D5W 100 ML IV SCH ×3 (02:07→17:05)
[2018-12-09 04:41] LABS: EOSINOPHILS % (AUTO) 0.1 % (0.0-6.0); HEMATOCRIT 33 % (39-51); HEMOGLOBIN 10.7 g/dL (13.5-17.5); LYMPHOCYTES # (AUTO) 0.4 /CMM (0.8-4.8); LYMPHOCYTES % (AUTO) 3.6 % (20.0-44.0); MEAN CORPUSCULAR HGB CONC 33 g/dl (31.0-36.0); MEAN CORPUSCULAR VOLUME 96 fL (80-96); MONOCYTES # (AUTO) 0.7 /CMM (0.1-1.30); MONOCYTES % (AUTO) 5.6 % (2.0-12.0); NEUTROPHILS % (AUTO) 90.7 % (43.0-81.0); PLATELET COUNT (AUTO) 136 /CMM (150-450); WHITE BLOOD COUNT (AUTO) 12.1 K/uL (4.3-11.0)
[2018-12-09] MEDS: METRONIDAZOLE 500MG/ NS 100ML 500 MG in PREMIX 1 EA IV SCH ×3 (05:46→21:16)
[2018-12-09] MEDS: VANCOMYCIN HCL 125 MG/2.5 ML ORAL.SUSP PO SCH ×3 (05:47→17:05)
[2018-12-09 05:59] LABS: CALCIUM, SERUM 8.1 mg/dL (8.5-10.1); CARBON DIOXIDE 26 mmol/L (21-32); CHLORIDE 112 mmol/L (98-107); CREATININE 0.9 mg/dL (0.6-1.3); GLUCOSE 135 mg/dL (74-106); POTASSIUM 3.8 mmol/L (3.5-5.1); SODIUM SERUM 145 mmol/L (136-145); UREA NITROGEN, BLOOD 30 mg/dL (7-18)
--- NOTE | 2018-12-09 07:05 | NUR ---
LOOM OPERATOR APPRENTICE INITIAL NOTE RECEIVED PT FROM NIGHTSHIFT RN IN STABLE CONDITION. PT ABLE TO FOLLOW COMMANDS AND IS RESPONSIVE TO BOTH VERBAL AND TACTILE STIMULI. PT ORALLY INTUBATED ON SIMV MODE. VENT SETTING CHECKED FOR ACCURACY. PT TOLERATING SETTINGS WELL. VSS. EQUAL CHEST RISE AND FALL. GONCALVES CATHETER NOTED TO BE INTACT AND DRAINING CLEAR, YELLOW URINE. FLEXISEAL NOTED TO ALSO BE INTACT. NO OUTPUT NOTED AT THIS TIME. MULTIPLE IVS NOTED. ONE TO PT'S RIGHT HAND, ANOTHER TO HIS LEFT, AND THE THIRD A LEFT UPPER ARM PICC. LINES NOTED TO BE PATENT AND INTACT. NO REDNESS OR SIGNS OF INFILTRATION NOTED. PT CURRENTLY SR ON THE MONITOR WITH OCCASIONAL PACS. BILATERAL SOFT WRIST RESTRAINTS NOTED. NORMALS PULSES TO UPPER EXTREMITY AND GOOD CAP REFILL ASSESSED. BED IN LOW LOCKED POSITION., SIDE RAILS UP X3, CALL LIGHT WITHIN REACH, CDIFF ISOLATION PRECAUTIONS MAINTAINED. WILL CONTINUE TO MONITOR .
--- NOTE | 2018-12-09 07:15 | NUR ---
RN NOTES PATIENT REMAINED IN STABLE CONDITION. ORALLY INTUBATED TOLERATED VENT SETTING SIMV MODE , NO ACUTE RESPIRATORY DISTRESS. PATIENT IS MORE AWAKE AND ALERT. COMMUNICATED TO NURSE. NGT KEPT INTACT AND PATENT.. REMAINED IN ISOLATION DUE TO C- DIFF ISOLATION PRECAUTION MET. 3 IV SITE INTACT AND PATENT. CONTINUE WITH F.C DRAINED WITH FERNANDA COLOR URINE, FLEXISEAL KEPT ON STILL WITH LARGE LOOSE DARK GREENISH COLOR OUTPUT. PT WILL HAVE WEANING TRIAL TODAY, KEPT PT CLEAN AND DRY. ENDORSED CONTINUITY OF CARE TO AM NURSE AND TO FOLLOW UP FEEDING FOR THE PATIENT IS SO WORRIED THAT THE IS NOT BEEN FED FOR A COUPLE OF DAYS.
[2018-12-09] MEDS: SUCRALFATE 1 G/10 ML UDC PO SCH ×4 (08:37→21:16)
[2018-12-09] MEDS: PANTOPRAZOLE 40 MG VIAL IV SCH ×2 (08:37→16:47)
[2018-12-09] MEDS: HEPARIN SODIUM, PORCINE 5000 UNITS/1 ML VIAL SQ SCH ×2 (09:00→21:16)
--- NOTE | 2018-12-09 09:25 | NUR ---
PREBOARDER NOTES: EGD PROCEDURE DR. GOODMAN AT BEDSIDE. MD UPDATED ON PT'S CONDITION, POSITIVE OB STOOL AND RECENT LABS. PER MD "PT MAY NOT NEED AN EGD HIS H/H/ IS STABLE AND SHOWS NO OBVIOUS SIGNS OF BLEEDING, HOWEVER I WILL FOLLOW IT UP WITH THE ANESTHESIOLOGIST AND GET BACK TO YOU".
[2018-12-09] MEDS: IV D5/ 0.9% NACL 1,000 ML IV PRN (09:32)
[2018-12-09 10:13] LABS: ABG BASE EXCESS 3.1 mmol/L; ABG OXYGEN SATURATION 96.2 % (92.0-98.5); ABG PH 7.459 (7.350-7.450); ABG PO2 87.1 mmHg (75.0-100.0); AaDO2 153.3 mmHg; COHb 0.3 % (0.5-1.5); MetHb 0.6 % (0.0-1.5); O2Hb 95.3 % (94.0-97.0); PEEP,BG 5 cm H2O; SITE, ABG Left Radial
--- NOTE | 2018-12-09 10:21 | NUR ---
DR NORMAN AT BEDSIDE FOR EGD PROCEDURE
[2018-12-09] MEDS ORDERED: K PHOS NEUTRAL 250 MG TABLET PO ONE (14:00)
[2018-12-09] MEDS: SOD FERRIC GLUC 125 MG in IV NS 0.9% 100 ML IV SCH (15:26)
--- NOTE | 2018-12-09 18:29 | NUR ---
DAMASCENER CLOSING NOTES PT REMAINS IN STABLE CONDITION. HE TOLERATED CPAP WELL THROUGHOUT SHIFT. VSS THROUGHOUT. PT REPOSITIONED AND TURNED PER HOSPITAL PROTOCOL. INVASIVE LINES REMAIN PATENT AND INTACT. PT TOLERATING IV FLUIDS AND ZOSYN INFUSION WELL. FLEXI SEAL REMAINS PATENT AND DRAINING LIQUID GREEN STOOL. PRN CARE RENDERED. SAFETY MEASURES AND ISOLATION PRECAUTIONS IN PLACE. WILL ENDORSE TO NIGHTSHIFT RN FOR JUAN JOSÉ.
--- NOTE | 2018-12-09 19:55 | NUR ---
STULL HEWER. INITIAL ASSESSMENT. RECEIVED THE PT REST ON THE BED. ORALLY INTUBATED. CPAP MODE. PT TOLERATED WELL. SAT 98%. NO ACUTE DISTRESS NOTED. EVP SALES SHOWING S TACH. RATE IS 105. ETT #7.5,LIP 27,PS 12, CPAP 5. FIOP2 40%, PEEP 5. RT NARE NGT CLAMPED. IV LT UPPER ARM PICC LINE. IVF D5NS 80ML/H. HOB ELEVATED. FC PATENT. FLEXA SEAL INTACT. HAIDER SOFT WRIST RESTRAINT CHECKED AND RELEASED. NO INJURY OR REDNESS NOTED. WILL CONTINUE TO MONITOR VITALS
--- NOTE | 2018-12-09 20:03 | NUR ---
PT IS AWAKE AND FOLLOWS COMMAND, INTUBATED ON CPAP MODE. NO RESP DISTRESS. TOLERATING VENT SETTINGS. SX'D FOR MOD AMT OF THICK WHITE SECRETIONS. VENT ALARMS SET AND AUDIBLE. VENT PLUGGED INTO RED OUTLET. AMBU BAG AT BEDSIDE. WILL CONTINUE TO MONITOR. Addendum: 12/09/18 at 2004 by TARIQ BUTCHER RT Amended: Links added.
[2018-12-10] VITALS (36 sets, daily range): BP systolic 117–157; BP diastolic 60–98
[2018-12-10] MEDS: VANCOMYCIN HCL 125 MG/2.5 ML ORAL.SUSP PO SCH ×5 (02:14→23:00)
[2018-12-10] MEDS: PIPERACILLIN /TAZOBACTAM 3.375 G in IV D5W 100 ML IV SCH ×3 (02:15→17:22)
--- NOTE | 2018-12-10 04:36 | NUR ---
YARN WINDER. AM CARE, ORAL CARE, BED BATH GIVEN. LINEN CHANGED. REMAINING SAME VENT SETTING TOLERATED WELL. SAT 99%.NO ACUTE DISTRESS NOTED. CIO SHOWING S TACH;. FC PATENT. URINE DRAINING. HAIDER SOFT WRIST RESTRAINT CHECKED AND RELEASED. NO INJUR OR REDRT NARE NGT CLAMPED.WILL CONTINUR TO MON
[2018-12-10] MEDS: METRONIDAZOLE 500MG/ NS 100ML 500 MG in PREMIX 1 EA IV SCH ×3 (05:06→20:44)
[2018-12-10] MEDS: IV D5/ 0.9% NACL 1,000 ML IV PRN (05:10)
--- NOTE | 2018-12-10 07:10 | NUR ---
BEDSIDE REPORT RECEIVED FROM BARRY winston, FOLLOWS SIMPLE COMMANDS, REMAINS ON MECHANICAL VENTILATOR, CPAP MODE
[2018-12-10 07:52] LABS: ABG OXYGEN SATURATION 97.1 % (92.0-98.5); ABG PCO2 38.2 mmHg (35.0-45.0); ABG PH 7.477 (7.350-7.450); ABG PO2 94.5 mmHg (75.0-100.0); AaDO2 146.8 mmHg; COHb 0.2 % (0.5-1.5); MetHb 0.6 % (0.0-1.5); O2Hb 96.3 % (94.0-97.0); SITE, ABG Right Radial
[2018-12-10] MEDS ORDERED: BUMETANIDE INJ 8 MG in IV NS 0.9% 48 ML IV ONE (08:00)
[2018-12-10] MEDS ORDERED: DC PROPOFOL WHEN EXTUBATED XX PRN (08:00)
[2018-12-10] MEDS: SUCRALFATE 1 G/10 ML UDC PO SCH ×4 (08:18→20:47)
[2018-12-10] MEDS: PANTOPRAZOLE 40 MG VIAL IV SCH ×2 (08:18→16:30)
[2018-12-10 08:24] LABS: EOSINOPHILS % (AUTO) 0.1 % (0.0-6.0); HEMATOCRIT 37 % (39-51); LYMPHOCYTES # (AUTO) 0.6 /CMM (0.8-4.8); LYMPHOCYTES % (AUTO) 4.7 % (20.0-44.0); MEAN CORPUSCULAR HGB CONC 33 g/dl (31.0-36.0); MEAN CORPUSCULAR VOLUME 94 fL (80-96); MONOCYTES # (AUTO) 0.8 /CMM (0.1-1.30); MONOCYTES % (AUTO) 6.1 % (2.0-12.0); NEUTROPHILS # (AUTO) 12.2 /CMM (1.8-8.9); NEUTROPHILS % (AUTO) 89.1 % (43.0-81.0); PLATELET COUNT (AUTO) 180 /CMM (150-450); RED BLOOD CELL COUNT(AUTO) 3.93 MIL/uL (4.5-6.0); WHITE BLOOD COUNT (AUTO) 13.7 K/uL (4.3-11.0)
[2018-12-10] MEDS: Potassium Phosphate meq 11 MEQ in IV NS 0.9% 100 ML IV SCH ×2 (08:33→11:39)
[2018-12-10 08:50] LABS: ALANINE AMINOTRANSFERASE 31 U/L (12-78); ALBUMIN 1.5 g/dL (3.4-5.0); ALKALINE PHOSPHATASE 135 U/L (46-116); ASPARTATE AMINOTRANSFERASE 21 U/L (15-37); BILIRUBIN,TOTAL 0.7 mg/dL (0.2-1.0); CALCIUM, SERUM 8.1 mg/dL (8.5-10.1); CARBON DIOXIDE 26 mmol/L (21-32); CHLORIDE 116 mmol/L (98-107); CREATININE 0.9 mg/dL (0.6-1.3); GLUCOSE 137 mg/dL (74-106); MAGNESIUM 2.2 mg/dL (1.8-2.4); PHOSPHORUS 2.3 mg/dL (2.5-4.9); POTASSIUM 3.3 mmol/L (3.5-5.1); SODIUM SERUM 150 mmol/L (136-145); TOTAL PROTEIN, SERUM 5.4 g/dL (6.4-8.2); UREA NITROGEN, BLOOD 32 mg/dL (7-18)
[2018-12-10] MEDS: HEPARIN SODIUM, PORCINE 5000 UNITS/1 ML VIAL SQ SCH ×2 (08:52→20:45)
[2018-12-10 08:53] LABS: BAND % (MANUAL) 3 % (0.0-5.0); LYMPHOCYTES % (MANUAL) 7 % (16-48); MONOCYTES % (MANUAL) 3 % (0-11.0); NEUTROPHILS % (MANUAL) 87 (42-76)
--- NOTE | 2018-12-10 09:45 | NUR ---
RT PATIENT EXTUBATED PER DR VASQUEZ ORDER AND PLACED ON SUPPLEMENTAL O2. RN AWARE
--- NOTE | 2018-12-10 12:53 | NUR ---
SEEN BY SPEECH THERAPIST, Karissa AT BEDSIDE, PT REFUSED SWALLOW EVALUATION AT THIS TIME DESPITE EXPLANATIONS OF IMPORTANCE; THERAPIST WILL REAPPROACH LATER THIS PM FOR SWALLOW EVALUATION
--- NOTE | 2018-12-10 14:41 | NUR ---
REFUSED SWALLOW EVALUATION X2 RELATED TO NAUSEA AND EPIGAASTRIC PAIN, DR Mack REESE AWARE WITH ORDERS
[2018-12-10] MEDS: ONDANSETRON HCL/PF 4 MG/2 ML VIAL IV PRN (15:03)
[2018-12-10] MEDS: SOD FERRIC GLUC 125 MG in IV NS 0.9% 100 ML IV SCH (15:03)
--- NOTE | 2018-12-10 16:08 | NUR ---
FREQUENT PAC'S POST BUMEX DRIP AND [address] MARY ANN GONCALVES PAGED, AWAITING RETURN CALL
--- NOTE | 2018-12-10 16:17 | NUR ---
dR Thorpe CALLED BACK, GIVEN UPDATES ON PT; 4 LITERS OUT VIA GONCALVES SINCE 0700 ; POST BUMEX DRIP AND FREQUENT PAC'S; WITH ORDER FOR K REPLACEMENT
[2018-12-10] MEDS: POTASSIUM CL. PREMIX PERIPHER. 50 ML IV SCH ×4 (16:30→19:35)
--- NOTE | 2018-12-10 19:08 | NUR ---
REPORT GIVEN TO TARIQ FONTENOT
--- NOTE | 2018-12-10 19:47 | NUR ---
BEE FARMER NOTES RECEIVED PT ON BED, FAMILY AT BEDSIDE. ON NASAL CANNULA 4LPM SATURATING 96%. NO RESPIRATORY DISTRESS NOTED. ON TELE MONITOR ST 100 WITH PAC AND PVC. ON GONCALVES CATH DRAINING YELLOW URINE. ON FLEXISEAL INTACT. PT STILL NPO PENDING SWALLOW EVAL. IV ACCESS ON ALLEN PICC PATENT AND INTACT, WITH IVF RUNNING WELL. HEAD OF BED ELEVATED. SIDE RAILS UP. CALL LIGHT WITHIN REACH. BED ALARM ON. WILL CONTINUE TO MONITOR PT CLOSELY.
[2018-12-11] VITALS (39 sets, daily range): BP systolic 108–145; BP diastolic 54–93
[2018-12-11] MEDS: PIPERACILLIN /TAZOBACTAM 3.375 G in IV D5W 100 ML IV SCH ×3 (01:03→17:10)
[2018-12-11] MEDS: METRONIDAZOLE 500MG/ NS 100ML 500 MG in PREMIX 1 EA IV SCH ×3 (04:06→20:46)
--- NOTE | 2018-12-11 04:14 | NUR ---
MANAGER CHEMISTRY NOTES BEDBATH DONE, PT NO RESPIRATORY DISTRESS AT THIS TIME
[2018-12-11 04:58] LABS: CALCIUM, SERUM 8.2 mg/dL (8.5-10.1); CARBON DIOXIDE 36 mmol/L (21-32); CHLORIDE 108 mmol/L (98-107); CREATININE 1.7 mg/dL (0.6-1.3); GLUCOSE 134 mg/dL (74-106); POTASSIUM 2.9 mmol/L (3.5-5.1); SODIUM SERUM 152 mmol/L (136-145); UREA NITROGEN, BLOOD 47 mg/dL (7-18)
[2018-12-11] MEDS: VANCOMYCIN HCL 125 MG/2.5 ML ORAL.SUSP PO SCH ×3 (05:01→17:10)
[2018-12-11 05:02] LABS: BASOPHILS % (AUTO) 0.1 % (0.0-2.0); EOSINOPHILS % (AUTO) 0.1 % (0.0-6.0); HEMATOCRIT 42 % (39-51); LYMPHOCYTES # (AUTO) 0.7 /CMM (0.8-4.8); LYMPHOCYTES % (AUTO) 5.2 % (20.0-44.0); MEAN CORPUSCULAR HGB CONC 33 g/dl (31.0-36.0); MEAN CORPUSCULAR VOLUME 93 fL (80-96); MONOCYTES # (AUTO) 0.7 /CMM (0.1-1.30); MONOCYTES % (AUTO) 5.2 % (2.0-12.0); NEUTROPHILS # (AUTO) 12.7 /CMM (1.8-8.9); NEUTROPHILS % (AUTO) 89.4 % (43.0-81.0); PLATELET COUNT (AUTO) 245 /CMM (150-450); RED BLOOD CELL COUNT(AUTO) 4.54 MIL/uL (4.5-6.0); WHITE BLOOD COUNT (AUTO) 14.2 K/uL (4.3-11.0)
--- NOTE | 2018-12-11 06:29 | NUR ---
PICKLE WATER PUMP OPERATOR NOTES PAGED BUSINESS INTELLIGENCE ETL DEVELOPER REGARDING K OF 2.9. AWAITING CALL BACK
--- NOTE | 2018-12-11 06:34 | NUR ---
CHIEF NURSE NOTES PER WEB RETAILER, GIVE 40MEQ POTASSIUM IV. WILL MONITOR PT CLOSELY.
[2018-12-11] MEDS ORDERED: POTASSIUM CHLORIDE 10 MEQ/50 ML PREMIXED IVPB FOR PERIPHERAL LINE IV ONE ×2 (07:00→07:30)
--- NOTE | 2018-12-11 07:00 | NUR ---
RN NOTES RECEIVED PT ON BED, ALERT, FOLLOWS SIMPLE COMMANDS , ON 4L O2 N/C , NO SOB NOTED, O2 SAT 93%, ON TELE SR HR IN 90'S , WITH PAC'S AND PVC'S , GONCALVES CATH DRAINING TO GRAVITY WITH YELLOW URINE. FLEXISEAL INTACT,L UPPER ARM PICC AND R HAND AND L HAND IV SITES CLEAN, DRY AND INTACT, HEAD OF BED ELEVATED. SR UP x3, CALL LIGHT WITHIN EASY REACH. BED LOCKED AND IN LOWEST POSITION , CONTINUE TO MONITOR PT CLOSELY.
--- NOTE | 2018-12-11 07:08 | NUR ---
HELPER METAL HANGING NOTES NO ACUTE CHANGES NOTED THROUGHOUT THE SHIFT. PROVIDED COMFORT AND SAFETY. ENDORSED TO THE AM NURSE FOR CONTINUITY OF CARE.
[2018-12-11] MEDS ORDERED: POTASSIUM CL. PREMIX PERIPHER. 50 ML IV SCH (07:30)
[2018-12-11] MEDS: SUCRALFATE 1 G/10 ML UDC PO SCH ×6 (07:30→22:16)
[2018-12-11] MEDS: PANTOPRAZOLE 40 MG VIAL IV SCH ×2 (08:17→16:38)
[2018-12-11] MEDS: POTASSIUM CL. PREMIX PERIPHER. 50 ML IV SCH ×8 (08:17→16:09)
[2018-12-11] MEDS: HEPARIN SODIUM, PORCINE 5000 UNITS/1 ML VIAL SQ SCH ×2 (08:18→20:44)
[2018-12-11] MEDS: ONDANSETRON HCL/PF 4 MG/2 ML VIAL IV PRN (08:51)
--- NOTE | 2018-12-11 10:00 | NUR ---
RN NOTES PT REFUSED SWALLOWING EVAL, EXPLAINED TO PT HOW IMPORTANT IT IS TO HAVE THE EVAL DONE, PT STILL REFUSED , DR REESE NOTIFIED .
--- NOTE | 2018-12-11 12:00 | NUR ---
RN NOTES FAMILY REQUESTED TO HAVE SPEECH THERAPIST TO COME BACK FOR EVAL , BUT PT STILL REFUSED .
[2018-12-11] MEDS ORDERED: IV D5W 1,000 ML IV SCH (13:00)
[2018-12-11] MEDS ORDERED: ONDANSETRON HCL/PF 4 MG/2 ML VIAL IV PRN (13:30)
--- NOTE | 2018-12-11 14:00 | NUR ---
RN NOTES PT STILL REFUSING TO HAVE SWALLOWING EVAL DONE . SUPPORTIVE FAMILY AT THE BEDSIDE, CONTINUE TO MONITOR .
[2018-12-11] MEDS: SOD FERRIC GLUC 125 MG in IV NS 0.9% 100 ML IV SCH (14:47)
[2018-12-11 15:33] LABS: APPEARANCE,URINE CLEAR (CLEAR); BILIRUBIN,URINE NEGATIVE (NEGATIVE); BLOOD, URINE 1+ Ery/uL (NEGATIVE); COLOR,URINE YELLOW (YELLOW); KETONES,URINE NEGATIVE (NEGATIVE); LEUKOCYTE ESTERASE ,URINE NEGATIVE (NEGATIVE); NITRITE, URINE NEGATIVE (NEGATIVE); PH,URINE 5.5 (5.0-8.0); PROTEIN,URINE TRACE mg/dl (NEGATIVE); UGLUCOSE NEGATIVE (NEGATIVE); UROBILINOGEN,URINE 0.2 EU/dL (0.2)
[2018-12-11 16:11] LABS: BACTERIA,URINE None seen /HPF (None Seen); SQUAMOUS EPITHELIAL CELL,UR Rare /HPF (None Seen); URIC ACID CRYSTALS,URINE Moderate /HPF (None Seen); WBC,URINE 0-2 /HPF (0-3)
[2018-12-11 16:21] LABS: URINE TOTAL PROTEIN 41.9 mg/dL (0-11.9)
[2018-12-11 16:34] LABS: EOSINOPHIL,URINE None Seen
--- NOTE | 2018-12-11 17:00 | NUR ---
RN NOTES PT C/O PAIN IN HAIDER LOWER EXTREMIST , NEGATIVE HOMANS' SIGN . NO SWELLING AND REDNESS NOTED ON HAIDER. LE DR DAVID NOTIFED, CONTINUE TO MONITOR .
--- NOTE | 2018-12-11 18:44 | NUR ---
RN NOTES NO SIGNIFICANT CHANGES NOTED ON THIS SHIFT, WILL ENDOSE TO PROJECT CONTROLS SPECIALIST NURSE FOR CONTINUITY OF CARE .
--- NOTE | 2018-12-11 19:30 | NUR ---
ICU/RN RECEIVED PT AWAKE,TRACKS AND FOLLOWS SIMPLE COMMANDS.ON N/C AT 3LPM,SAT.92-94%.DENIES PAIN OR DISCOMFORT.
--- NOTE | 2018-12-11 22:00 | NUR ---
ICU/RN SUCTIONED VIA MOUTH FOR MODERATE TO LARGE AMT.SECRETIONS PT UNABLE TO BRING UP SECRETIONS.REPOSITIONED AND TURNED AFTER.
[2018-12-12] VITALS (19 sets, daily range): BP systolic 113–152; BP diastolic 58–82
[2018-12-12] MEDS: VANCOMYCIN HCL 125 MG/2.5 ML ORAL.SUSP PO SCH ×4 (00:32→18:00)
--- NOTE | 2018-12-12 01:00 | NUR ---
ICU/RN N-T SUCTIONED BY RT FOR LARGE AMT SECRETIONS,THICK SLIGHTLY BLOOD-TINGED.
[2018-12-12] MEDS: PIPERACILLIN /TAZOBACTAM 3.375 G in IV D5W 100 ML IV SCH (02:11)
[2018-12-12] MEDS: METRONIDAZOLE 500MG/ NS 100ML 500 MG in PREMIX 1 EA IV SCH ×3 (04:40→21:29)
[2018-12-12 04:42] LABS: BASOPHILS % (AUTO) 0.1 % (0.0-2.0); HEMATOCRIT 44 % (39-51); HEMOGLOBIN 14.3 g/dL (13.5-17.5); LYMPHOCYTES # (AUTO) 0.7 /CMM (0.8-4.8); LYMPHOCYTES % (AUTO) 3.8 % (20.0-44.0); MEAN CORPUSCULAR HGB CONC 33 g/dl (31.0-36.0); MEAN CORPUSCULAR VOLUME 94 fL (80-96); MONOCYTES # (AUTO) 0.7 /CMM (0.1-1.30); MONOCYTES % (AUTO) 3.7 % (2.0-12.0); NEUTROPHILS # (AUTO) 17.5 /CMM (1.8-8.9); NEUTROPHILS % (AUTO) 92.4 % (43.0-81.0); PLATELET COUNT (AUTO) 283 /CMM (150-450); RED BLOOD CELL COUNT(AUTO) 4.68 MIL/uL (4.5-6.0)
[2018-12-12 04:45] LABS: ALANINE AMINOTRANSFERASE 26 U/L (12-78); ALBUMIN 1.8 g/dL (3.4-5.0); ALKALINE PHOSPHATASE 140 U/L (46-116); ASPARTATE AMINOTRANSFERASE 26 U/L (15-37); BILIRUBIN,TOTAL 0.9 mg/dL (0.2-1.0); CARBON DIOXIDE 37 mmol/L (21-32); CHLORIDE 117 mmol/L (98-107); CREATININE 1.5 mg/dL (0.6-1.3); GLUCOSE 150 mg/dL (74-106); MAGNESIUM 2.7 mg/dL (1.8-2.4); PHOSPHORUS 2.5 mg/dL (2.5-4.9); POTASSIUM 4.4 mmol/L (3.5-5.1); TOTAL PROTEIN, SERUM 6.5 g/dL (6.4-8.2); UREA NITROGEN, BLOOD 53 mg/dL (7-18)
[2018-12-12 05:03] LABS: SODIUM SERUM 156 mmol/L (136-145)
--- NOTE | 2018-12-12 06:00 | NUR ---
ICU/RN VANCOCIN HCL BLAS REFUSED BY PT,WHEN ATTEMPTED TO GIVE AT 0000,SPAT ON THE NURSE,FOLLOWED W/ H2O BUT DID THE SAME.VITAL SIGNS STABLE.SUCTIONED FOR COPIOUS AMT. OF THICK WHITE-PALE YELLOW SECRETIONS..MINMAL LIQUID STOOL FROM FLEXISEAL.
--- NOTE | 2018-12-12 07:30 | NUR ---
INITIAL RECEIVED PT ON BED, ALERT, FOLLOWS SIMPLE COMMANDS , ON 3L O2 N/C , NO SOB NOTED, O2 SAT 95%, ON TELE SR HR IN 80'S , GONCALVES CATH DRAINING TO GRAVITY WITH YELLOW URINE. FLEXISEAL INTACT,L UPPER ARM PICC AND R HAND AND L HAND IV SITES CLEAN, DRY AND INTACT, HEAD OF BED ELEVATED. SR UP x3, CALL LIGHT WITHIN EASY REACH. BED LOCKED AND IN LOWEST POSITION , CONTINUE TO MONITOR PT CLOSELY.
[2018-12-12] MEDS: HEPARIN SODIUM, PORCINE 5000 UNITS/1 ML VIAL SQ SCH ×2 (08:41→21:30)
[2018-12-12] MEDS: PANTOPRAZOLE 40 MG VIAL IV SCH ×2 (08:44→18:09)
--- NOTE | 2018-12-12 08:52 | NUR ---
SWALLOW MANAGER PHYSICAL PRESENT PT REFUSED LIQUIDS MD IRIZARRYEG AWARE
--- NOTE | 2018-12-12 11:00 | NUR ---
SPOKE WITH SPOUSE TAMIKA UPDATED ABOUT PLAN OF CARE DAUGHTER IS COMING DOWN FROM [place] TO SEE PT SWALLOW INSTRUCTIONAL SERVICES LIBRARIAN PRESENT WILL COME BACK WHEN FAMILY PRESENT PT CONTINUES TO REFUSE LIQUIDS
--- NOTE | 2018-12-12 14:30 | NUR ---
SWALLOW THERAPIST RETURNED WITH FAMILY AT BEDSIDE PT REFUSES TO EAT. OR DRINK ANYTHING PT DOWN GRADED TO MARISSA CN AWARE
--- NOTE | 2018-12-12 15:07 | NUR ---
TRANSFER RN REPORT GIVEN TO JODEE PT TO GO TO ROOM 104
[2018-12-12] MEDS: IV D5W 1,000 ML IV PRN (15:53)
--- NOTE | 2018-12-12 16:00 | NUR ---
RN NOTE RECEIVED PT FROM LEONARDO, DESTINATION SIGN REPAIRER, AOX1, ON NC 4.0 L/MIN, VS STABLE, FAMILY AND DR REESE AT BEDSIDE. SR ON COUPLES THERAPIST. GONCALVES INTACT, FLEXISEAL IN PLACE DRAINING LIQUID STOOL, PICCLINE IN PLACE, IV SITES IN PLACE. PT CO PAIN IN STOMACH, PT TO KEEP NPO, REFUSED ORAL CARE. SAFETY MEASURES IN PLACE, CALL LIGHT WITHIN REACH, BED ALARM ON.
[2018-12-12] MEDS: SUCRALFATE 1 G/10 ML UDC PO SCH ×2 (16:38→21:29)
[2018-12-12] MEDS ORDERED: ACETAMINOPHEN 650 MG/SUPP.RECT RC PRN (17:00)
[2018-12-12] MEDS ORDERED: ACETAMINOPHEN 650 MG/20.3 ML UDC NG PRN (17:00)
--- NOTE | 2018-12-12 19:50 | NUR ---
RN MARISSA INITIAL NOTE RECEIVED PT ON BED, ALERT, FOLLOWS SIMPLE COMMANDS , ON 3L O2 N/C , NO SOB NOTED, O2 SAT 96%, ON TELE SR HR IN 70'S , GONCALVES CATH DRAINING TO GRAVITY WITH YELLOW URINE. FLEXISEAL INTACT,L UPPER ARM PICC AND R HAND AND L HAND IV SITES CLEAN, DRY AND INTACT, HEAD OF BED ELEVATED. SR UP x3, CALL LIGHT WITHIN EASY REACH. BED LOCKED AND IN LOWEST POSITION , CONTINUE TO MONITOR PT CLOSELY.
[2018-12-13] VITALS: BP 113/61
[2018-12-13] MEDS: VANCOMYCIN HCL 125 MG/2.5 ML ORAL.SUSP PO SCH ×4 (00:28→17:00)
[2018-12-13 04:27] VITALS: BP 129/70
[2018-12-13] MEDS: METRONIDAZOLE 500MG/ NS 100ML 500 MG in PREMIX 1 EA IV SCH ×3 (04:54→21:11)
[2018-12-13] MEDS: IV D5W 1,000 ML IV PRN ×2 (05:02→22:27)
--- NOTE | 2018-12-13 07:23 | NUR ---
RN MARISSA CLOSING NOTE PT REFUSING ALL MEDS, NONCOMPLIANT WITH TX PLAN AND MEDS, UNABLE TO MAKE AN EFFORT OR WILLINGNESS TO TRY, ENDORSED TO AM RN TO MAKE EFFORT TO NOTIFY MD AND FAMILY OF THIS SERIOUS OCCURRENCE.
--- NOTE | 2018-12-13 07:25 | NUR ---
MARISSA RN INITIAL NOTES: RECEIVED PT FROM NIGHTSHIFT RN IN STABLE CONDITION. PT IS A/O X2. NO SOB OR ACUTE SIGNS OF DISTRESS NOTED. BREATHING IS EVEN AND UNLABORED. PT ON 4L VIA NC AND SATING WELL. HE DENIES ANY PAIN AT THIS TIME. PT CURRENTLY REFUSING 0730 CARAFATE ADMINISTRATION AND ALL PO MEDICATIONS. MULTIPLE IVS NOTED. ONE TO PT'S LEFT HAND AND OTHER TO HIS RIGHT AND A LEFT UPPER ARM PICC. ALL IVS NOTED TO BE PATENT AND INTACT. NO REDRESSOR SIGNS OF INFILTRATION NOTED. GONCALVES CATHETER NOTED TO BE DRAINING FERNANDA COLORED URINE. FLEXI SEAL NOTED WITH 200CC OF GREEN LIQUID STOOL. BED IN LOW LOCKED POSITION, SIDE RAILS UP X2, CALL LIGHT WITHIN REACH. WILL CONTINUE TO MONITOR
[2018-12-13] MEDS: SUCRALFATE 1 G/10 ML UDC PO SCH ×4 (07:30→21:11)
[2018-12-13 08:00] VITALS: BP 128/70
[2018-12-13] MEDS: PANTOPRAZOLE 40 MG VIAL IV SCH ×2 (08:42→17:21)
[2018-12-13] MEDS: HEPARIN SODIUM, PORCINE 5000 UNITS/1 ML VIAL SQ SCH ×2 (08:42→21:14)
--- NOTE | 2018-12-13 11:26 | NUR ---
MARISSA RN NOTES: INFECTION CONTROL PT FAMILY AT BEDSIDE AND EDUCATED ON THE USE OF GOWNS AND GLOVES WHEN IN CONTACT WITH PT DUE TO CDIFF PRECAUTIONS, HOWEVER PERSISTENT ON NOT WEARING GLOVES AND PERIODICALLY DAWNING GOWNS. PROPER HANDWASHING TECHNIQUE ALSO DISCUSSED.
[2018-12-13 12:00] VITALS: BP 120/73
[2018-12-13 12:46] LABS: BASOPHILS % (AUTO) 0.1 % (0.0-2.0); EOSINOPHILS % (AUTO) 0.2 % (0.0-6.0); HEMATOCRIT 44 % (39-51); LYMPHOCYTES # (AUTO) 0.6 /CMM (0.8-4.8); LYMPHOCYTES % (AUTO) 4.3 % (20.0-44.0); MEAN CORPUSCULAR HGB CONC 32 g/dl (31.0-36.0); MEAN CORPUSCULAR VOLUME 94 fL (80-96); MONOCYTES # (AUTO) 0.4 /CMM (0.1-1.30); MONOCYTES % (AUTO) 2.8 % (2.0-12.0); NEUTROPHILS # (AUTO) 12.5 /CMM (1.8-8.9); NEUTROPHILS % (AUTO) 92.6 % (43.0-81.0); PLATELET COUNT (AUTO) 313 /CMM (150-450); RED BLOOD CELL COUNT(AUTO) 4.64 MIL/uL (4.5-6.0); WHITE BLOOD COUNT (AUTO) 13.5 K/uL (4.3-11.0)
[2018-12-13 13:00] LABS: ALANINE AMINOTRANSFERASE 22 U/L (12-78); ALBUMIN 1.8 g/dL (3.4-5.0); ALKALINE PHOSPHATASE 135 U/L (46-116); ASPARTATE AMINOTRANSFERASE 19 U/L (15-37); BILIRUBIN,TOTAL 0.9 mg/dL (0.2-1.0); CALCIUM, SERUM 8.6 mg/dL (8.5-10.1); CARBON DIOXIDE 35 mmol/L (21-32); CHLORIDE 117 mmol/L (98-107); CREATININE 1.2 mg/dL (0.6-1.3); GLUCOSE 146 mg/dL (74-106); MAGNESIUM 2.4 mg/dL (1.8-2.4); PHOSPHORUS 3.2 mg/dL (2.5-4.9); POTASSIUM 3.3 mmol/L (3.5-5.1); TOTAL PROTEIN, SERUM 6.2 g/dL (6.4-8.2); UREA NITROGEN, BLOOD 45 mg/dL (7-18)
[2018-12-13 13:09] LABS: SODIUM SERUM 157 mmol/L (136-145)
--- NOTE | 2018-12-13 13:18 | NUR ---
MARISSA RN NOTES: CRITICAL LAB (NA) LAB CALLED IN REGARDS TO PT'S CRITICALLY HIGH SODIUM LEVEL OF 157. DR. REESE PAGED VIA [employer] EXCHANGE. AWAITING CALL BACK
[2018-12-13] MEDS ORDERED: POTASSIUM CHLORIDE 10 MEQ/50 ML PREMIXED IVPB FOR PERIPHERAL LINE IV ONE (13:30)
--- NOTE | 2018-12-13 13:35 | NUR ---
MARISSA RN NOTES: MD ORDERS (DR. REESE) 1324: CALLED RECEIVED FROM DR. REESE IN REGARDS TO PT'S CRITICAL NA LEVEL. PER MD, "HAVE PHARMACY CHANGE ALL IV ABX SO THAT THEY ARE MIXED WITH ONLY WATER". MD ALSO MADE AWARE OF PT'S POTASSIUM OF 3.3 AND HAVE TELEPHONE ORDERS TO REPLACE WITH 40MEQ OF K+ VIA IV. WILL CARRY OUT ORDERS DIRECTED 1330: PHARMACIST CALLED AND NOTIFIED, HOWEVER, PER PHARMACIST "PT IS ONLY ON FLAGYL WHICH IS ALREADY PREMIXED AND WE ARE UNABLE TO CHANGE THAT". DR REESE NOTIFIED AGAIN THROUGH EXCHANGE, HOWEVER UNABLE TO GET A HOLD OF
[2018-12-13] MEDS: POTASSIUM CL. PREMIX PERIPHER. 50 ML IV SCH ×4 (13:53→17:21)
[2018-12-13 16:00] VITALS: BP_SYST 131; BP_SYST 134; BP_DIAS 67; BP_DIAS 73
--- NOTE | 2018-12-13 17:30 | NUR ---
MARISSA RN NOTES: 1700/1800 MEDICATION ADMINISTRATION PT REFUSING PO MEDICATIONS AT THIS TIME. RISKS AND BENEFITS DISCUSSED HOWEVER HE REMAINS FIRM IN HIS STANCE.
--- NOTE | 2018-12-13 18:24 | NUR ---
MARISSA RN CLOSING NOTES PT REMAINS IN STABLE CONDITION.ALL NEEDS MET DURING SHIFT AND ORDERS CARRIED OUT ACCORDINGLY. VSS THROUGHOUT. PT REPOSITIONED AND TURNED PER HOSPITAL PROTOCOL. INVASIVE LINES REMAIN PATENT AND INTACT. PT TOLERATING IV FLUIDS WELL. EXLETROLYTES REPLACED DURING SHIFT. FLEXI SEAL REMAINS PATENT AND DRAINING LIQUID GREEN STOOL. PRN CARE RENDERED. SAFETY MEASURES AND ISOLATION PRECAUTIONS IN PLACE. WILL ENDORSE TO NIGHTSHIFT RN FOR JUAN JOSÉ.
[2018-12-13 20:00] VITALS: BP 120/68
[2018-12-14] VITALS (7 sets, daily range): BP systolic 121–136; BP diastolic 60–74
[2018-12-14] MEDS: VANCOMYCIN HCL 125 MG/2.5 ML ORAL.SUSP PO SCH ×4 (00:19→18:00)
[2018-12-14] MEDS: METRONIDAZOLE 500MG/ NS 100ML 500 MG in PREMIX 1 EA IV SCH ×3 (05:08→21:36)
--- NOTE | 2018-12-14 06:48 | NUR ---
RN CLOSING NOTES PATIENT IN COMFORTABLY LYING IN BED WITH EYES CLOSE. BREATHING EVEN AND UNLABORED. NO COMPLAINT OF PAIN OR DISCOMFORT. ALERT WITH CONFUSION. KEPT CLEAN AND DRY. WILL ENDORSE TO NEXT SHIFT FOR CONTINUITY OF CARE.
[2018-12-14] MEDS: SUCRALFATE 1 G/10 ML UDC PO SCH ×5 (07:30→21:39)
--- NOTE | 2018-12-14 08:00 | NUR ---
PT EASILY AROUSABLE, ORIENTED TO SELF. ASSISTED WITH AM HYGIENE, REFUSING ORAL CARE REFUSING FOOD, WATER, MEDICATIONS. REPOSITIONED FOR COMFORT.
[2018-12-14 08:06] LABS: BASOPHILS % (AUTO) 0.1 % (0.0-2.0); EOSINOPHILS % (AUTO) 0.3 % (0.0-6.0); HEMATOCRIT 41 % (39-51); HEMOGLOBIN 13.7 g/dL (13.5-17.5); LYMPHOCYTES # (AUTO) 0.7 /CMM (0.8-4.8); LYMPHOCYTES % (AUTO) 5.1 % (20.0-44.0); MEAN CORPUSCULAR HGB CONC 33 g/dl (31.0-36.0); MEAN CORPUSCULAR VOLUME 94 fL (80-96); MONOCYTES # (AUTO) 0.4 /CMM (0.1-1.30); MONOCYTES % (AUTO) 3.2 % (2.0-12.0); NEUTROPHILS # (AUTO) 12.2 /CMM (1.8-8.9); NEUTROPHILS % (AUTO) 91.3 % (43.0-81.0); PLATELET COUNT (AUTO) 314 /CMM (150-450); RED BLOOD CELL COUNT(AUTO) 4.39 MIL/uL (4.5-6.0); WHITE BLOOD COUNT (AUTO) 13.3 K/uL (4.3-11.0)
[2018-12-14 08:19] LABS: ALANINE AMINOTRANSFERASE 19 U/L (12-78); ALBUMIN 1.8 g/dL (3.4-5.0); ALKALINE PHOSPHATASE 134 U/L (46-116); ASPARTATE AMINOTRANSFERASE 21 U/L (15-37); CALCIUM, SERUM 8.4 mg/dL (8.5-10.1); CARBON DIOXIDE 35 mmol/L (21-32); CHLORIDE 119 mmol/L (98-107); CREATININE 1.1 mg/dL (0.6-1.3); GLUCOSE 125 mg/dL (74-106); MAGNESIUM 2.4 mg/dL (1.8-2.4); PHOSPHORUS 2.9 mg/dL (2.5-4.9); POTASSIUM 3.6 mmol/L (3.5-5.1); TOTAL PROTEIN, SERUM 6.1 g/dL (6.4-8.2); UREA NITROGEN, BLOOD 43 mg/dL (7-18)
[2018-12-14 08:26] LABS: SODIUM SERUM 158 mmol/L (136-145)
[2018-12-14] MEDS: PANTOPRAZOLE 40 MG VIAL IV SCH ×2 (08:41→17:44)
[2018-12-14] MEDS: HEPARIN SODIUM, PORCINE 5000 UNITS/1 ML VIAL SQ SCH (08:43)
[2018-12-14] MEDS ORDERED: PIPERACILLIN /TAZOBACTAM 4.5 G in IV D5W 50 ML IV ONE (12:00)
[2018-12-14] MEDS: IV D5W 1,000 ML IV PRN ×2 (15:07→22:34)
--- NOTE | 2018-12-14 18:00 | NUR ---
SD STILL REFUSES MEDICATION AND FOOD. AWAITING FOR PSYCH CONSULT.
[2018-12-14] MEDS: PIPERACILLIN /TAZOBACTAM 3.375 G in IV D5W 100 ML IV SCH (18:32)
[2018-12-15] VITALS (8 sets, daily range): BP systolic 112–130; BP diastolic 67–75
[2018-12-15] MEDS: PIPERACILLIN /TAZOBACTAM 3.375 G in IV D5W 100 ML IV SCH ×3 (01:41→17:35)
[2018-12-15] MEDS: METRONIDAZOLE 500MG/ NS 100ML 500 MG in PREMIX 1 EA IV SCH ×3 (05:20→21:21)
[2018-12-15] MEDS: VANCOMYCIN HCL 125 MG/2.5 ML ORAL.SUSP PO SCH ×4 (06:00→17:35)
[2018-12-15 06:34] LABS: BASOPHILS % (AUTO) 0.1 % (0.0-2.0); EOSINOPHILS % (AUTO) 0.7 % (0.0-6.0); HEMATOCRIT 41 % (39-51); HEMOGLOBIN 13.3 g/dL (13.5-17.5); LYMPHOCYTES # (AUTO) 0.5 /CMM (0.8-4.8); LYMPHOCYTES % (AUTO) 3.8 % (20.0-44.0); MEAN CORPUSCULAR HGB CONC 32 g/dl (31.0-36.0); MEAN CORPUSCULAR VOLUME 95 fL (80-96); MONOCYTES # (AUTO) 0.3 /CMM (0.1-1.30); MONOCYTES % (AUTO) 2.4 % (2.0-12.0); NEUTROPHILS # (AUTO) 12.5 /CMM (1.8-8.9); PLATELET COUNT (AUTO) 317 /CMM (150-450); RED BLOOD CELL COUNT(AUTO) 4.34 MIL/uL (4.5-6.0); WHITE BLOOD COUNT (AUTO) 13.4 K/uL (4.3-11.0)
--- NOTE | 2018-12-15 06:34 | NUR ---
RN NOTES IN BED LYING COMFORTABLY. VITAL SIGNS WNL. REFUSED ALL MEDS. REFUSED TO BE SUCTIONED. NO PHYSICAL MANIFESTATION OF PAIN OR DISCOMFORT. ALERT, NON VERBAL. VITAL SIGNS WNL. KEPT CLEAN AND DRY. WILL ENDORSE TO NEXT SHIFT FOR CONTINUITY OF CARE.
[2018-12-15 07:10] LABS: CALCIUM, SERUM 8.2 mg/dL (8.5-10.1); CARBON DIOXIDE 31 mmol/L (21-32); CHLORIDE 117 mmol/L (98-107); CREATININE 1.2 mg/dL (0.6-1.3); GLUCOSE 127 mg/dL (74-106); MAGNESIUM 2.3 mg/dL (1.8-2.4); PHOSPHORUS 2.3 mg/dL (2.5-4.9); POTASSIUM 3.3 mmol/L (3.5-5.1); UREA NITROGEN, BLOOD 39 mg/dL (7-18)
--- NOTE | 2018-12-15 07:26 | NUR ---
TELE/RN Patient received Patient received from planning intern. Refussing to communicate at this time but will follow simple commands when asked to do so. Denies ant pain or discomfort, vital signs within normal limits for patients baseline. IV fluids infusing at 150ml/hr, no signs of infiltration seen. Safety measures in place, bed in low setting, side rails X3 in upright position. Call light within reach, patient placed in room close to nursing station for safety. Will continue to monitor and ensure safety.
[2018-12-15] MEDS: SUCRALFATE 1 G/10 ML UDC PO SCH ×4 (07:30→22:00)
[2018-12-15 07:32] LABS: SODIUM SERUM 156 mmol/L (136-145)
[2018-12-15] MEDS: PANTOPRAZOLE 40 MG VIAL IV SCH ×2 (08:16→17:35)
--- NOTE | 2018-12-15 09:15 | NUR ---
TELE/RN S/B Dr Romero Seen by Dr Heather Tim evaluation ordered, correctional casework specialist made aware.
--- NOTE | 2018-12-15 11:30 | NUR ---
TELE/RN S/B Dr Lamb Seen by MD - labs ordered f or tomorrow, await psychiatric evaluation.
--- NOTE | 2018-12-15 11:44 | NUR ---
TELE/metal door assembler f/u [employer] called to folow up psych consult, informed by US that patient had been assigned to Dr King and that he had not yey made rounds and they were unsure as to when he would see patient. Dr King called and informed that he would not now be seeing the patient and that it would be Dr Verma for the intial consult. Family updated.
[2018-12-15] MEDS: POTASSIUM CL. PREMIX PERIPHER. 50 ML IV SCH ×2 (11:55→12:41)
[2018-12-15] MEDS: IV D5W 1,000 ML IV PRN (12:41)
[2018-12-15] MEDS: POTASSIUM PHOSPHATE MM 7.5 MMOL in IV D5W 100 ML IV SCH ×2 (15:15→17:33)
--- NOTE | 2018-12-15 15:29 | NUR ---
TELE/RN Rounds Patient remains calm and cooperative with care, allowing nursing to turn and repsoition every 2-3 hours. and children at bedside awaiting psychiatrist.
[2018-12-15] MEDS ORDERED: OLANZAPINE 5 MG/TAB.RAPDIS PO PRN (18:00)
[2018-12-15] MEDS: OLANZAPINE 5 MG/TAB.RAPDIS PO SCH (18:15)
--- NOTE | 2018-12-15 18:26 | NUR ---
TELE/RN End note Seen by Dr Verma - pilaryprexa 2.5mg SL ordered every 6 hours. First dose administered, patient willing to try medication but remains paranoid. Continues to refuse to eat or drink anything, despite frequent reassurance and encouragement from both famly and nursing. Safety measures remain in place, bed in low setting, side rails x3 in upright position, call light within reach. Will endorse to councilperson.
[2018-12-15] MEDS ORDERED: ONDANSETRON HCL/PF 4 MG/2 ML VIAL IV PRN (23:00)
[2018-12-16] VITALS: BP 113/65
[2018-12-16] MEDS: OLANZAPINE 5 MG/TAB.RAPDIS PO SCH ×4 (00:56→17:19)
[2018-12-16] MEDS: PIPERACILLIN /TAZOBACTAM 3.375 G in IV D5W 100 ML IV SCH ×3 (00:56→17:15)
[2018-12-16 04:00] VITALS: BP 107/67
[2018-12-16] MEDS: METRONIDAZOLE 500MG/ NS 100ML 500 MG in PREMIX 1 EA IV SCH ×3 (05:44→21:14)
[2018-12-16] MEDS: IV D5W 1,000 ML IV PRN ×2 (05:44→17:17)
[2018-12-16 05:58] LABS: CALCIUM, SERUM 8.1 mg/dL (8.5-10.1); CARBON DIOXIDE 33 mmol/L (21-32); CHLORIDE 116 mmol/L (98-107); CREATININE 1.2 mg/dL (0.6-1.3); GLUCOSE 103 mg/dL (74-106); PHOSPHORUS 2.4 mg/dL (2.5-4.9); POTASSIUM 3.3 mmol/L (3.5-5.1); SODIUM SERUM 155 mmol/L (136-145); UREA NITROGEN, BLOOD 38 mg/dL (7-18)
[2018-12-16] MEDS: VANCOMYCIN HCL 125 MG/2.5 ML ORAL.SUSP PO SCH ×4 (06:00→17:16)
--- NOTE | 2018-12-16 06:48 | NUR ---
RN NOTES IN BED COMFORTABLY SLEEPING WITH NO DISTRESS NOTED. BREATHING EVEN AND UNLABORED. COMPLAINED OF NAUSEA, GOT ORDER FROM DR CLINE FOR ZOFRAN IV Q6H. PATIENT REFUSED WHEN ASKED IF HE WANTED TO HAVE MEDS FOR HIS NAUSEA. PATIENT IS ALERT AND ORIENTED WITH EPISODES OF CONFUSION. ABLE TO VERBALLY COMMUNICATE NEEDS. COMPLAINED OF NASAL DRYNESS, INFORMED RT AND PUT HUMIDIFIER, WITH HELP AND RELIEF, WILL ENDORSE TO NEXT SHIFT FOR CONTINUITY OF CARE.
[2018-12-16] MEDS: SUCRALFATE 1 G/10 ML UDC PO SCH ×4 (07:30→21:15)
--- NOTE | 2018-12-16 07:35 | NUR ---
CISTERN ROOM OPERATOR INITIAL NOTES: RECEIVED PT FROM NIGHTSHIFT RN IN STABLE CONDITION. PT IS A/O X2. NO SOB OR ACUTE SIGNS OF DISTRESS NOTED. BREATHING IS EVEN AND UNLABORED. PT ON 4L VIA NC AND SATING WELL. HE DENIES ANY PAIN AT THIS TIME. PT CURRENTLY REFUSING 0730 CARAFATE ADMINISTRATION AND ALL PO MEDICATIONS. MULTIPLE IVS NOTED. ONE TO PT'S LEFT HAND AND ANOTHER LEFT UPPER ARM PICC. ALL IVS NOTED TO BE PATENT AND INTACT. NO REDRESSOR SIGNS OF INFILTRATION NOTED. PT TOLERATING D5W INFUSION WELL. GONCALVES CATHETER NOTED TO BE DRAINING FERNANDA COLORED URINE. FLEXI SEAL NOTED WITH GREEN LIQUID STOOL. BED IN LOW LOCKED POSITION, SIDE RAILS UP X2, CALL LIGHT WITHIN REACH, CONTACT/CDIFF PRECAUTIONS MAINTAINED. WILL CONTINUE TO MONITOR
[2018-12-16 08:00] VITALS: BP 111/67
[2018-12-16] MEDS: POTASSIUM PHOSPHATE MM 5 MMOL in IV D5W 100 ML IV SCH ×2 (09:18→11:57)
[2018-12-16] MEDS: PANTOPRAZOLE 40 MG VIAL IV SCH ×2 (09:18→17:15)
--- NOTE | 2018-12-16 11:29 | NUR ---
NURSE FIRST ASSIST NOTES: CODE STATUS DR. BOUDREAUX AT BEDSIDE WITH PT AND PT'S FAMILY. FAMILY HAS DECIDED THAT THEY WOULD LIKE THE PT TO BE DNR/DNI. VERBAL ORDER OBTAINED BY TO CHANGE PT'S CODE STATUS. ORDER VERIFIED BY CHARGE
[2018-12-16 12:00] VITALS: BP 126/69
[2018-12-16 16:00] VITALS: BP 145/76
--- NOTE | 2018-12-16 16:18 | NUR ---
MELT HELPER NOTES: VALENTIN BABIN SPEECH THERAPIST AT BEDSIDE WITH PT'S SON AND . ATTEMPTS MADE TO GIVE PT A FEW ICE CHIPS ALONG WITH SIPS OF WATER HOWEVER PT WAS SEEN,COUGHING AFTER SIPS DUE TO AN EXCESS OF SECRETIONS. PER SPEECH THERAPIST, "A FEW ICE CHIPS ARE OKAY TO GIVE HIM FOR TODAY, HOWEVER IT IS NOT SAFE TO GIVE HIM ANYTHING ELSE TODAY". SPEECH THERAPIST STATES THAT SHE WILL F/U WITH HIM TOMORROW
--- NOTE | 2018-12-16 18:41 | NUR ---
DIRECTOR TRANSLATION CLOSING NOTES PT REMAINS IN STABLE CONDITION.ALL NEEDS MET DURING SHIFT AND ORDERS CARRIED OUT ACCORDINGLY. VSS THROUGHOUT. PT REPOSITIONED AND TURNED PER HOSPITAL PROTOCOL. INVASIVE LINES REMAIN PATENT AND INTACT. PT TOLERATING IV FLUIDS WELL. ELECTROLYTES REPLACED DURING SHIFT. FLEXI SEAL REMAINS PATENT AND DRAINING LIQUID GREEN STOOL. PRN CARE RENDERED. SAFETY MEASURES AND ISOLATION PRECAUTIONS IN PLACE. HE REMAINS SR ON THE TELE MONITOR. WILL ENDORSE TO NIGHTSHIFT RN FOR JUAN JOSÉ.
--- NOTE | 2018-12-16 19:40 | NUR ---
ELECTRICAL CHECKOUT MECHANIC INITIAL NOTES PATIENT IN BED AWAKE AT THIS TIME, A/O TO SELF, BREATHING EVEN AND UNLABORED NO S/SOF SOB/ACUTE DISTRESS NOTED AT THIS TIME, SR ON THE TELE MONITOR HR IN THE 90S AT THIS TIME, MIROSLAVA PICC LINE PATENT AND INTACT, IV FLUIDS INFUSING WELL AND PATIENT TOLERATED WELL, NOTED FLEXI SEAL DRAINING LIQUID GREEN STOOL, F/C PATENT AND INTACT, SAFETY MEASURES, ASPIRATION AND ISOLATION PRECAUTIONS IN PLACED, WILL CONTINUE TO MONITOR CLOSELY.
[2018-12-16 20:00] VITALS: BP 148/71
[2018-12-17] VITALS: BP_SYST 155; BP_SYST 158; BP_DIAS 71
[2018-12-17] MEDS: OLANZAPINE 5 MG/TAB.RAPDIS PO SCH ×4 (00:48→18:05)
[2018-12-17] MEDS: PIPERACILLIN /TAZOBACTAM 3.375 G in IV D5W 100 ML IV SCH ×2 (02:36→09:54)
[2018-12-17 04:00] VITALS: BP 115/45
[2018-12-17] MEDS: METRONIDAZOLE 500MG/ NS 100ML 500 MG in PREMIX 1 EA IV SCH ×3 (05:19→21:00)
[2018-12-17] MEDS: VANCOMYCIN HCL 125 MG/2.5 ML ORAL.SUSP PO SCH ×5 (06:00→23:51)
--- NOTE | 2018-12-17 06:44 | NUR ---
ROUTE SALESMAN AND DRIVER CLOSING NOTES PATIENT IN BED AWAKE AT THIS TIME, A/O TO SELF, BREATHING EVEN AND UNLABORED NO S/S OF SOB/ACUTE DISTRESS NOTED AT THIS TIME, SR ON THE TELE MONITOR HR IN THE 90S-100S AT THIS TIME, MIROSLAVA PICC LINE PATENT AND INTACT, IV FLUIDS INFUSING WELL AND PATIENT TOLERATED WELL, NOTED FLEXI SEAL DRAINING LIQUID GREEN STOOL, F/C PATENT AND INTACT, NO SIGNIFICANT CHANGE IN CONDITION DURING THE NIGHT, SAFETY MEASURES, ASPIRATION AND ISOLATION PRECAUTIONS IN PLACED, WILL ENDORFSE CONTINUITY OF CARE TO ONCOMING NURSE.
--- NOTE | 2018-12-17 06:45 | NUR ---
BREWERY REPRESENTATIVE NOTES, PATIENT AT HIGH RISK FOR ASPIRATION, NPO EXCEPT MEDS, LIQUID MEDS NOT ADMINISTERED FOR SAFETY.
[2018-12-17 06:56] LABS: BASOPHILS % (AUTO) 0.3 % (0.0-2.0); EOSINOPHILS % (AUTO) 1.7 % (0.0-6.0); HEMATOCRIT 37 % (39-51); HEMOGLOBIN 12.1 g/dL (13.5-17.5); LYMPHOCYTES # (AUTO) 0.9 /CMM (0.8-4.8); MEAN CORPUSCULAR HGB CONC 33 g/dl (31.0-36.0); MEAN CORPUSCULAR VOLUME 94 fL (80-96); MONOCYTES # (AUTO) 0.5 /CMM (0.1-1.30); MONOCYTES % (AUTO) 4.4 % (2.0-12.0); NEUTROPHILS # (AUTO) 9.6 /CMM (1.8-8.9); NEUTROPHILS % (AUTO) 85.6 % (43.0-81.0); PLATELET COUNT (AUTO) 264 /CMM (150-450); WHITE BLOOD COUNT (AUTO) 11.3 K/uL (4.3-11.0)
[2018-12-17 07:19] LABS: ALANINE AMINOTRANSFERASE 20 U/L (12-78); ALBUMIN 1.7 g/dL (3.4-5.0); ALKALINE PHOSPHATASE 136 U/L (46-116); ASPARTATE AMINOTRANSFERASE 32 U/L (15-37); BILIRUBIN,TOTAL 1.1 mg/dL (0.2-1.0); CALCIUM, SERUM 7.8 mg/dL (8.5-10.1); CARBON DIOXIDE 31 mmol/L (21-32); CHLORIDE 113 mmol/L (98-107); GLUCOSE 137 mg/dL (74-106); PHOSPHORUS 2.1 mg/dL (2.5-4.9); SODIUM SERUM 149 mmol/L (136-145); TOTAL PROTEIN, SERUM 5.5 g/dL (6.4-8.2); UREA NITROGEN, BLOOD 30 mg/dL (7-18)
[2018-12-17] MEDS: SUCRALFATE 1 G/10 ML UDC PO SCH ×4 (07:30→22:00)
[2018-12-17 08:00] VITALS: BP_SYST 126; BP_SYST 149; BP_DIAS 59; BP_DIAS 65
[2018-12-17] MEDS: PANTOPRAZOLE 40 MG VIAL IV SCH ×2 (08:54→18:04)
[2018-12-17] MEDS: IV D5W 1,000 ML IV PRN (08:54)
[2018-12-17] MEDS: POTASSIUM CL. PREMIX PERIPHER. 50 ML IV SCH ×6 (09:54→16:44)
[2018-12-17] MEDS ORDERED: DOXYCYCLINE 100 MG in IV D5W 100 ML IV SCH (11:00)
--- NOTE | 2018-12-17 11:58 | NUR ---
RN NOTE PT SEEN BY DR BOUDREAUX, AWARE ABOUT SWALLOW FAILURE FROM YESTERDAY. DR GOODMAN IS NOTIFIED FOR NEED FOR PEG TUBE INSERTION. AWATING HIS RESPONSE. AWARE AND AT BEDSIDE. SAFETY MEASURES IN PLACE. CALL LIGHT WITHIN REACH.
[2018-12-17 12:00] VITALS: BP_SYST 111; BP_SYST 146; BP_DIAS 70; BP_DIAS 87
[2018-12-17] MEDS ORDERED: POTASSIUM PHOSPHATE MM 7.5 MMOL in IV D5W 100 ML IV SCH (12:00)
[2018-12-17] MEDS: CEFTRIAXONE 1 G in IV D5W 50 ML IV SCH (13:52)
[2018-12-17 14:19] LABS: URINE SODIUM, RANDOM 69 mmol/l (40-220)
[2018-12-17 15:04] LABS: OSMOLALITY,URINE 657 mOS/kg (340-1090)
[2018-12-17 16:00] VITALS: BP 114/61
[2018-12-17] MEDS: Potassium Chloride 40 MEQ in IV D5W 1,000 ML IV PRN (16:41)
--- NOTE | 2018-12-17 19:00 | NUR ---
RN NOTE PT REMAINED STABLE, NPO, AOX1, VISITED TODAY, DR GOODMAN SAID HE IS COMING TONIGHT TO SEE THE PT AND DECIDE ABOUT PEG TUBE INSERTION. SAFETY MEASURES IN PLACE, CALL LIGHT WITHIN REACH. WILL ENDORSE TO POTTER OR CERAMIC ARTIST.
[2018-12-17 20:00] VITALS: BP 119/66
[2018-12-18] VITALS: BP 134/68
[2018-12-18] MEDS: OLANZAPINE 5 MG/TAB.RAPDIS PO SCH ×5 (00:28→23:02)
[2018-12-18 04:00] VITALS: BP 127/65
[2018-12-18] MEDS: METRONIDAZOLE 500MG/ NS 100ML 500 MG in PREMIX 1 EA IV SCH ×3 (04:25→22:43)
[2018-12-18] MEDS: Potassium Chloride 40 MEQ in IV D5W 1,000 ML IV PRN (04:25)
[2018-12-18] MEDS: VANCOMYCIN HCL 125 MG/2.5 ML ORAL.SUSP PO SCH ×3 (06:00→18:00)
[2018-12-18 06:39] LABS: CARBON DIOXIDE 29 mmol/L (21-32); CHLORIDE 110 mmol/L (98-107); CREATININE 0.9 mg/dL (0.6-1.3); GLUCOSE 101 mg/dL (74-106); POTASSIUM 3.9 mmol/L (3.5-5.1); SODIUM SERUM 143 mmol/L (136-145); UREA NITROGEN, BLOOD 17 mg/dL (7-18)
[2018-12-18 08:00] VITALS: BP 126/59
[2018-12-18] MEDS: SUCRALFATE 1 G/10 ML UDC PO SCH ×4 (08:29→22:00)
[2018-12-18] MEDS: PANTOPRAZOLE 40 MG VIAL IV SCH ×2 (08:29→17:20)
[2018-12-18] MEDS: IV D5/0.45 NACL 1,000 ML IV PRN (10:18)
--- NOTE | 2018-12-18 10:29 | NUR ---
RECEIVED PT IN BED AND UPRIGHT. VS STABLE. BREATHING REGULAR BUT W/ INABILITY TO COUGH/CLEAR AIRWAY OF SECRETIONS. A/O X2. NO SOB OR ACUTE SIGNS OF DISTRESS NOTED. PT ON 4L VIA NC AND SATING WELL. PT ATTEMPTING TO SPEAK BUT HIS SENTENCES ARE UNCLEAR. MULTIPLE IVS NOTED. ONE L HAND AND 1 L UPPER ARM PICC. ALL IVS NOTED TO BE PATENT AND INTACT. GONCALVES CATHETER IN PLACE AND DRAINING FERNANDA COLORED URINE. FLEXI SEAL NOTED WITH GREEN LIQUID STOOL. BED IN LOW LOCKED POSITION, SIDE RAILS UP X2, CALL LIGHT WITHIN REACH, CONTACT/CDIFF PRECAUTIONS MAINTAINED. WILL CONTINUE TO MONITOR
[2018-12-18 12:00] VITALS: BP 131/100
[2018-12-18] MEDS: CEFTRIAXONE 1 G in IV D5W 50 ML IV SCH (12:34)
[2018-12-18 16:00] VITALS: BP 146/82
--- NOTE | 2018-12-18 18:26 | NUR ---
MARISSA RN NOTES MEDICATIONS HELD D/T PT INABILITY TO SWALLOW. PATIENT OBSERVED SPITTING MEDICATION OUT AFTER ADMINISTERED BY RN. PATIENT SON AT BEDSIDE AND AWARE.
--- NOTE | 2018-12-18 18:40 | NUR ---
PATIENT SLEEPING IN UPRIGHT POSITION AT THIS TIME. PATIENT UNRESPONSIVE TO VERBAL COMMANDS W/INCOHERENT AND GARBLED SPEECH. BREATHING EVEN AND UNLABORED, REMAINS UNABLE TO COUGH/EXPELL SECRETIONS ON HIS OWN. NO S/S OF SOB OR ACUTE DISTRESS NOTED, SR ON THE TELE MONITOR., MIROSLAVA PICC LINE PATENT AND INTACT, IV FLUIDS INFUSING WELL AND PATIENT TOLERATED WELL, NOTED FLEXI SEAL DRAINING LIQUID GREEN STOOL, GONCALVES CATHETER INTACT AND PATENT W/CLEAR YELLOW URINE. NO SIGNIFICANT CHANGE IN CONDITION DURING THE DAY, SAFETY MEASURES, ASPIRATION AND ISOLATION PRECAUTIONS IN PLACED, WILL ENDORSE CONTINUITY OF CARE TO PLATE GAUGER NURSE.
[2018-12-18 20:00] VITALS: BP 121/65
[2018-12-19] VITALS: BP 120/68
[2018-12-19 04:00] VITALS: BP 124/72
[2018-12-19] MEDS: METRONIDAZOLE 500MG/ NS 100ML 500 MG in PREMIX 1 EA IV SCH ×3 (05:02→22:17)
[2018-12-19] MEDS: VANCOMYCIN HCL 125 MG/2.5 ML ORAL.SUSP PO SCH ×5 (06:00→23:40)
[2018-12-19] MEDS: OLANZAPINE 5 MG/TAB.RAPDIS PO SCH ×4 (06:16→23:40)
[2018-12-19] MEDS: IV D5/0.45 NACL 1,000 ML IV PRN (06:18)
[2018-12-19 06:35] LABS: BASOPHILS % (AUTO) 0.2 % (0.0-2.0); EOSINOPHILS % (AUTO) 0.8 % (0.0-6.0); HEMATOCRIT 36 % (39-51); HEMOGLOBIN 11.7 g/dL (13.5-17.5); LYMPHOCYTES # (AUTO) 0.8 /CMM (0.8-4.8); LYMPHOCYTES % (AUTO) 6.4 % (20.0-44.0); MEAN CORPUSCULAR HGB CONC 33 g/dl (31.0-36.0); MEAN CORPUSCULAR VOLUME 94 fL (80-96); MONOCYTES # (AUTO) 0.7 /CMM (0.1-1.30); MONOCYTES % (AUTO) 5.3 % (2.0-12.0); NEUTROPHILS # (AUTO) 11.6 /CMM (1.8-8.9); NEUTROPHILS % (AUTO) 87.3 % (43.0-81.0); PLATELET COUNT (AUTO) 268 /CMM (150-450); WHITE BLOOD COUNT (AUTO) 13.3 K/uL (4.3-11.0)
[2018-12-19 06:43] LABS: ALANINE AMINOTRANSFERASE 20 U/L (12-78); ALBUMIN 1.8 g/dL (3.4-5.0); ALKALINE PHOSPHATASE 160 U/L (46-116); ASPARTATE AMINOTRANSFERASE 29 U/L (15-37); BILIRUBIN,TOTAL 0.9 mg/dL (0.2-1.0); CALCIUM, SERUM 8.2 mg/dL (8.5-10.1); CARBON DIOXIDE 28 mmol/L (21-32); CHLORIDE 111 mmol/L (98-107); CREATININE 0.8 mg/dL (0.6-1.3); GLUCOSE 110 mg/dL (74-106); PHOSPHORUS 2.6 mg/dL (2.5-4.9); SODIUM SERUM 148 mmol/L (136-145); TOTAL PROTEIN, SERUM 5.8 g/dL (6.4-8.2); UREA NITROGEN, BLOOD 18 mg/dL (7-18)
--- NOTE | 2018-12-19 07:00 | NUR ---
RN NOTES PATIENT IN BED, AWAKE WITH NO RESPIRATORY DISTRESS OR SHORTNESS OF BREATH. BREATHING EVEN AND UNLABORED. NO PHYSICAL MANIFESTATION OF PAIN OR DISCOMFORT. ALERT AND ORIENTED. VERBALLY ABLE TO COMMUNICATE NEEDS. FOR PEG PLACEMENT TODAY. SUCTIONED LARGE AMOUNT OF SEMILOOSE, YELLOWISH SECRETION. KEPT CLEAN AND DRY. WILL ENDORSE TO NEXT SHIFT FOR CONTINUITY OF CARE.
[2018-12-19] MEDS: SUCRALFATE 1 G/10 ML UDC PO SCH ×4 (07:30→22:17)
--- NOTE | 2018-12-19 07:55 | NUR ---
PT PICKED UP BY OR STAFF FOR SURGERY. AT BEDSIDE. VS ARE STABLE , PT CONFUSED
[2018-12-19 08:00] VITALS: BP 125/69
[2018-12-19] MEDS ORDERED: ALBUTEROL FS 2.5 MG/3 ML VIAL.NEB ONE (08:20)
[2018-12-19] MEDS: PANTOPRAZOLE 40 MG VIAL IV SCH ×2 (08:20→17:41)
--- NOTE | 2018-12-19 10:05 | NUR ---
PT BACK FROM SURGERY. VS ARE STABLE . ON MASK O2 SATURATION 95% AT THE BED SIDE
[2018-12-19 12:00] VITALS: BP 118/74
[2018-12-19] MEDS: CEFTRIAXONE 1 G in IV D5W 50 ML IV SCH (13:03)
[2018-12-19 16:00] VITALS: BP 127/64
--- NOTE | 2018-12-19 16:37 | NUR ---
D/C SACHA CATH PER
[2018-12-19] MEDS: HYDROMORPHONE INJ 0.5 MG/0.5 ML SYRINGE IV PRN (18:46)
--- NOTE | 2018-12-19 19:03 | NUR ---
PT IN BED AND UPRIGHT. VS STABLE. BREATHING REGULAR BUT W/ INABILITY TO COUGH/CLEAR AIRWAY OF SECRETIONS, NEED TO BE SUCTIONED. A/O X2. PT ON 6L VIA NC AND SATING WELL. L UPPER ARM PICC. GONCALVES CATHETER D/C. FLEXI SEAL NOTED WITH GREEN LIQUID STOOL. BED IN LOW LOCKED POSITION, SIDE RAILS UP X2, CALL LIGHT WITHIN REACH, CONTACT/CDIFF PRECAUTIONS MAINTAINED. S/P PEG PLACEMENT , FLUSHING WELL, NO REDNESS AT THE SIDE. ABD BINDER IN PLACE.
[2018-12-19 20:00] VITALS: BP 139/76
--- NOTE | 2018-12-19 23:00 | NUR ---
RN NOTE - PVR CHECK Patient able urinate post removal of F/C in the afternoon. incontinence noted, bladder scan done post void and noted to have 130ml in bladder. bladder non distended, non tender. urinating well, no urinary retention.
[2018-12-20] VITALS: BP 144/68
[2018-12-20 04:00] VITALS: BP 131/70
[2018-12-20] MEDS: IV D5/0.45 NACL 1,000 ML IV PRN (05:40)
[2018-12-20] MEDS: VANCOMYCIN HCL 125 MG/2.5 ML ORAL.SUSP PO SCH ×4 (05:40→23:14)
[2018-12-20] MEDS: METRONIDAZOLE 500MG/ NS 100ML 500 MG in PREMIX 1 EA IV SCH ×2 (05:40→12:54)
[2018-12-20] MEDS: OLANZAPINE 5 MG/TAB.RAPDIS PO SCH ×4 (05:40→23:16)
--- NOTE | 2018-12-20 06:00 | NUR ---
RN NOTE - REPEAT CDIFF CX COLLECTED Order for repeat Cdiff cx by Dr. Barnes, please see notes. Patient was previously positive for Cdiff on admission. specimen collected as ordered, specimen submitted and logged to the lab. Charge nurse made aware of the Cdiff specimen order.
--- NOTE | 2018-12-20 06:42 | NUR ---
RN CLOSING NOTES Received patient lethargic, through the night patient is observed to be more awake, responsive to staff, able to make needs known and able to follow commands and compliant with staff instructions. S/P PEG placement, abdominal binder in place, PEG flushed and kept patent, clamped. meds given as ordered. with orders to start GT feeding in AM. RD recommendations reviewed, will endorse accordingly for f/up. HOB elevated. Aspiration precautions at all times. Received at 6Lpm of O2 via NC, patient in no respiratory distress. Able to titrate patient's O2 to 2Lpm via NC, patient saturating well at 95-98%. Airway suctioned as needed. Oral care provided. Good urine output post F/C removal. no urinary retention noted. Flexiseal in place, still noted with greenish-black liquid stool. kept patient clean and dry. Skin barrier applied. turned and repositioned. needs anticipated and met. IVF and ATB given as ordered. will endorse accordingly.
[2018-12-20 08:00] VITALS: BP 124/67
[2018-12-20] MEDS: SUCRALFATE 1 G/10 ML UDC PO SCH ×4 (08:32→21:14)
[2018-12-20] MEDS: PANTOPRAZOLE 40 MG VIAL IV SCH ×2 (08:32→17:15)
[2018-12-20 12:00] VITALS: BP 130/67
[2018-12-20] MEDS ORDERED: MEROPENEM 1 G in IV NS 0.9% 100 ML IV ONE (12:00)
[2018-12-20] MEDS: ALBUTEROL FS 2.5 MG/3 ML VIAL.NEB NEB SCH ×2 (13:00→16:29)
[2018-12-20] MEDS: JEVITY 1.2 CAL 1,000 ML BOTTLE GT PRN (15:36)
[2018-12-20 16:00] VITALS: BP 123/69
[2018-12-20] MEDS: HYDROMORPHONE INJ 0.5 MG/0.5 ML SYRINGE IV PRN (17:15)
--- NOTE | 2018-12-20 19:15 | NUR ---
TELE/RN INITIAL NOTES RECEIVED PT IN BED, AWAKE. SINUS TACHY HR 102 ON TELEMONITOR. ON 2L O2 VIA NC, TOLERATING WELL. NO SOB NOTED. WITH ONGOING IVF D51/2 NS AT 50 ML/HR INFUSING WELL ON MIROSLAVA PICC LINE. GT INTACT AND IN PLACED, WITH ONGOING GTF JEVITY AT 40 ML/HR, TOLERATING WELL. GOAL IS 65ML/HR, TO BE TITRATE PRN. HOB ELEVATED. WITH INTACT AND IN PLACED FLEXISEAL. ON CONTACT ISOLATION FOR +CDIFF AND ECOLI(RESP), SAFETY MEASURES AND ASPIRATION PRECAUTION IN PLACED. CALL LIGHT WITHIN EASY REACH. WILL CONT TO MONITOR
[2018-12-20 20:00] VITALS: BP 120/59
[2018-12-20] MEDS ORDERED: MEROPENEM 1 G in IV NS 0.9% 100 ML IV SCH (21:00)
[2018-12-21] VITALS: BP 114/54
[2018-12-21] MEDS: ALBUTEROL FS 2.5 MG/3 ML VIAL.NEB NEB SCH ×5 (00:16→15:30)
[2018-12-21 04:00] VITALS: BP 123/68
[2018-12-21] MEDS: IV D5/0.45 NACL 1,000 ML IV PRN (04:01)
[2018-12-21] MEDS: OLANZAPINE 5 MG/TAB.RAPDIS PO SCH ×2 (05:24→12:30)
[2018-12-21] MEDS: VANCOMYCIN HCL 125 MG/2.5 ML ORAL.SUSP PO SCH ×3 (05:24→17:15)
[2018-12-21 06:16] LABS: BASOPHILS # (AUTO) 0.1 /CMM (0.0-0.2); BASOPHILS % (AUTO) 0.6 % (0.0-2.0); EOSINOPHILS % (AUTO) 0.9 % (0.0-6.0); HEMATOCRIT 33 % (39-51); HEMOGLOBIN 10.9 g/dL (13.5-17.5); LYMPHOCYTES # (AUTO) 0.6 /CMM (0.8-4.8); LYMPHOCYTES % (AUTO) 5.4 % (20.0-44.0); MEAN CORPUSCULAR HGB CONC 33 g/dl (31.0-36.0); MEAN CORPUSCULAR VOLUME 95 fL (80-96); MONOCYTES # (AUTO) 0.8 /CMM (0.1-1.30); MONOCYTES % (AUTO) 8.1 % (2.0-12.0); NEUTROPHILS # (AUTO) 8.9 /CMM (1.8-8.9); PLATELET COUNT (AUTO) 299 /CMM (150-450); RED BLOOD CELL COUNT(AUTO) 3.49 MIL/uL (4.5-6.0); WHITE BLOOD COUNT (AUTO) 10.5 K/uL (4.3-11.0)
[2018-12-21 06:31] LABS: CALCIUM, SERUM 7.6 mg/dL (8.5-10.1); CARBON DIOXIDE 28 mmol/L (21-32); CHLORIDE 108 mmol/L (98-107); CREATININE 0.8 mg/dL (0.6-1.3); GLUCOSE 227 mg/dL (74-106); POTASSIUM 3.7 mmol/L (3.5-5.1); SODIUM SERUM 141 mmol/L (136-145); UREA NITROGEN, BLOOD 21 mg/dL (7-18)
--- NOTE | 2018-12-21 06:47 | NUR ---
RN NOTES PT IN STABLE CONDITION. NO ACUTE CHANGES NOTED. ALL NEEDS ANTICIPATED. ALL NEEDS ANTICIPATED. SAFETY MEASURES AND ASPIRATION PRECAUTION OBSERVED AT ALL TIMES. ENDORSED TO AM SHIFT RN FOR JUAN JOSÉ
[2018-12-21 08:00] VITALS: BP 133/66
--- NOTE | 2018-12-21 08:00 | NUR ---
LORRY WEIGHER NOTE PATIENT IN BED , ON 2L NC ,NO SOB NOTED ON TELE MONITOR [address] , WITH GONCALVES CATH TO GRAVITY , ON IVF ORDERED ,ON G TUBE FEEDING ORDERED NO RESIDUAL NOTED , BED IN LOWEST AND LOCKED POSITION , SON AT BEDSIDE MOUTH CARE DONE , TURN REPOSITION ON FLEXICAL RECTAL TUBE IN PLACE, WILL CONT TO MONITOR CLOSELY
[2018-12-21] MEDS: PANTOPRAZOLE 40 MG VIAL IV SCH ×2 (08:50→16:31)
[2018-12-21] MEDS: SUCRALFATE 1 G/10 ML UDC PO SCH ×3 (08:50→16:54)
[2018-12-21] MEDS: JEVITY 1.2 CAL 1,000 ML BOTTLE GT PRN (09:23)
--- NOTE | 2018-12-21 11:00 | NUR ---
MICA SIZER NOTE KEEP CLEAN DRY , ALL NEEDS ATTENDED, NOT IN ACUTE DISTRESS
[2018-12-21 12:00] VITALS: BP 129/74
[2018-12-21] MEDS ORDERED: LACT-209 GT (13:55)
[2018-12-21] MEDS ORDERED: ACET650S11 RC (13:55)
[2018-12-21] MEDS ORDERED: OLAN5TAB6 PO (13:55)
[2018-12-21] MEDS ORDERED: ALBUT2 NEB (13:55)
[2018-12-21] MEDS ORDERED: VANC125C11 PO (13:55)
[2018-12-21] MEDS ORDERED: PANT40TA2 PO (13:55)
[2018-12-21] MEDS ORDERED: SUCR1ORA6 PO (13:55)
--- NOTE | 2018-12-21 14:00 | NUR ---
DEPUTY CONTROLLER NOTE CALLED TO SNF FOR DISCHARGE INSTRUCTION , REPORT GIVEN TO KRYSTIAN RN , SPOKE WITH DR KANIKA QUINTEROS TO CONT SAM VIA G TUBE , SON AT BEDSIDE,AWARE THAT PATIENT WILL BE TRANSFER TO [facility] , SPOKE WITH OF PATIENT AGREE TO TRANSFER TO [facility] SIGNED BY SON
[2018-12-21 16:00] VITALS: BP 112/65
--- NOTE | 2018-12-21 18:31 | NUR ---
WINDOWS DESKTOP ENGINEER NOTE AMBULANCE ARRIVED, REPORT GIVEN .PICC LINE REMOVED , PRESSURE DRESSING APPLIED TELE REMOVED WENT TO SNF WITH STABLE CONDITION ,SON AT BEDSIDE
== END 2018-12-21 18:29 | DRG 870 ==
LOC: ICU 04:01 → TELE-TD 12-12 15:22 → TELE1 12-14 10:29
PROVIDERS: ADMIT Nurse Practitioner Acute Care
PROC: 5A1955Z Respiratory Ventilation, Greater than 96 Consecutive Hours (ICD-10-PCS; principal; 2018-12-05)
PROC: 0BH17EZ Insertion of Endotracheal Airway into Trachea, Via Natural or Artificial Opening (ICD-10-PCS; 2018-12-05)
PROC: 02HV33Z Insertion of Infusion Device into Superior Vena Cava, Percutaneous Approach (ICD-10-PCS; 2018-12-05)
PROC: B548ZZA Ultrasonography of Superior Vena Cava, Guidance (ICD-10-PCS; 2018-12-05)
PROC: 0DJ08ZZ Inspection of Upper Intestinal Tract, Via Natural or Artificial Opening Endoscopic (ICD-10-PCS; 2018-12-09)
PROC: 0DH63UZ Insertion of Feeding Device into Stomach, Percutaneous Approach (ICD-10-PCS; 2018-12-19)
DX: A41.9 Sepsis, unspecified organism (principal); N17.0 Acute kidney failure with tubular necrosis; R65.21 Severe sepsis with septic shock; J96.01 Acute respiratory failure with hypoxia; J96.02 Acute respiratory failure with hypercapnia; J69.0 Pneumonitis due to inhalation of food and vomit; F33.3 Major depressive disorder, recurrent, severe with psychotic symptoms; E87.0 Hyperosmolality and hypernatremia; E44.0 Moderate protein-calorie malnutrition; A04.72 Enterocolitis due to Clostridium difficile, not specified as recurrent; R45.851 Suicidal ideations; J98.11 Atelectasis; D64.9 Anemia, unspecified; E87.6 Hypokalemia; K21.0 Gastro-esophageal reflux disease with esophagitis; K44.9 Diaphragmatic hernia without obstruction or gangrene; Z90.49 Acquired absence of other specified parts of digestive tract; Z85.038 Personal history of other malignant neoplasm of large intestine; R62.7 Adult failure to thrive; N18.9 Chronic kidney disease, unspecified; E88.09 Other disorders of plasma-protein metabolism, not elsewhere classified; M62.50 Muscle wasting and atrophy, not elsewhere classified, unspecified site; Z68.22 Body mass index [BMI] 22.0-22.9, adult; K29.00 Acute gastritis without bleeding; F09 Unspecified mental disorder due to known physiological condition; R13.10 Dysphagia, unspecified; I50.9 Heart failure, unspecified; F03.90 Unspecified dementia, unspecified severity, without behavioral disturbance, psychotic disturbance, mood disturbance, and anxiety
CPT/HCPCS: 31720; 36415; 36569; 36600; 43246; 71045-TC; 80048-TC; 80053-TC; 81000-TC; 82272-TC; 82533; 82570-TC; 82728-TC; 82803-TC; 82962-TC; 83540-TC; 83735-TC; 83935-TC; 84100-TC; 84155-TC; 84300-TC; 84439-TC; 84443-TC; 84484-TC; 85025-TC; 85610-TC; 85730-TC; 87040-TC; 87070-TC; 87086-TC; 87186-TC; 92611-TC; 93307-TC; 94002-TC; 94003-TC; 94760-TC; 94799-TC; A4216; A4217; A6402; C1751; C9113; G0378; J0690; J0696; J1644; J1720; J2185; J2370; J2405; J2543; J2704; J2916; J3480; J3490; J7030; J7040; J7042; J7050; J7060; J7070